=== PATIENT | male | born 1960 | race Caucasian/White ===

== ENCOUNTER 2017-10-13 18:05 | Emergency (ER) | payer MEDICARE, SELFPAY ==
[2017-10-13 18:06] VITALS: BP 136/83; PULSE 104; RESP 16; TEMP 36.6; O2SAT 99; BMI 23.6
--- NOTE | 2017-10-13 18:37 | ED.VISSUMM ---
- ER Visit Summary Date of Service: 10/13/17 Chief Complaint: Back pain History of Present Illness: The patient is a 57 M with a history of chronic back pain. Patient states that he had nerve blocks in the past. He states for the past 3 days he had increasing back pain that he attributes to increased activity. 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 Patient states he has been doing his stretches without improvement. He is requesting a shot of steroid, muscle relaxer, and pain medicine. He has not been taking anything at home for pain. Physical Examination: Vital signs are grossly unremarkable. Heart rate is slightly elevated at 104. Patient is talking on his cell phone. He is in no acute distress. Head and neck examination unremarkable. Heart is regular rate and rhythm. Lung sounds are clear. Abdomen is soft nontender. No masses appreciated. Back examination was no midline tenderness. He does have reproducible tenderness in the left lumbar paraspinal muscles. Neuro exam reveals normal strength and sensation in the lower extremities. He has 1+ bilateral patellar reflexes. He has strong distal pulses. Test Results: [] Emergency Department Course and Treatment: Oars report was performed. He has had 2 prescriptions in the past year with the most recent being from March 2017. On review of hospital records I do not see that he has been seen here for back pain the last 5 years. Patient is given a shot of Kenalog, Norflex, and Toradol. He will be given prescriptions for Flexeril and Naprosyn. He is to follow-up with his primary care physician for further treatment. Treatment Plan: [] Disposition: Discharge Impression: Low back strain with spasm This note was generated with [employer] dictation software. It may contain incorrect words, spelling, and punctuation that were not noted in review of the chart prior to signing ED Disposition - Plan for ED Patient: Chief Complaint: Back Referrals: Chavez Manning MD [Primary Care Provider] -
--- NOTE | 2017-10-13 18:40 | ED.DEP ---
ED Disposition - Plan for ED Patient: Disposition: Home or Assisted Living Chief Complaint: Back Instructions: ED Sprain Strain Lumbar Prescriptions: Naproxen [Naprosyn] 500 mg PO BID PRN #20 tablet Cyclobenzaprine [Flexeril] 10 mg PO TID PRN #20 tablet PRN Reason: Muscle Spasm Referrals: Chavez Manning MD [Primary Care Provider] - 1 Week
[2017-10-13] MEDS: Ketorolac 60 MG/2 ML Vial IM (18:59)
[2017-10-13] MEDS: Triamcinolone Acetonide 40 MG/ML Vial IM (18:59)
[2017-10-13] MEDS: Orphenadrine 60 MG/2 ML Ampul IM (18:59)
== END 2017-10-13 19:41 | disposition home or self-care (01) ==
LOC: ED 18:55
PROVIDERS: Emergency Provider Emergency Medicine; Family Provider Internal Medicine; PCP Internal Medicine
DX: S39.012A Strain of muscle, fascia and tendon of lower back, initial encounter (principal); X50.3XXA Overexertion from repetitive movements, initial encounter; Y93.H9 Activity, other involving exterior property and land maintenance, building and construction; Y92.9 Unspecified place or not applicable; Y99.9 Unspecified external cause status; R25.2 Cramp and spasm; Z72.0 Tobacco use
CPT/HCPCS: 99282

== ENCOUNTER 2018-04-08 15:27 | Emergency (ER) | payer MEDICARE, SELFPAY ==
[2018-04-08 15:29] VITALS: BP 147/80; PULSE 111; RESP 17; TEMP 36.9; O2SAT 99; BMI 22.8
--- NOTE | 2018-04-08 15:43 | ED.VISSUMM ---
- ER Visit Summary Date of Service: 04/08/18 Chief Complaint: Back pain History of Present Illness: The patient is a 58 M with no primary care physician. He reports that he has left lower back pain began 3 days ago. He denies any trauma. No fall, MVA, or change in activity. Describes as aching constant pain that is 7 out of 10 in severity. He has sharp episodes that are 10 out of 10 severity. Is worsened by bending or walking. Is relieved by remaining still. He is not taking anything for pain. States that it radiates around to the lateral left leg. He denies any numbness or weakness in his legs. No problems with his bowels or bladder. No groin numbness. Patient reports that he has had similar episodes multiple times in the past and that is relieved by a shot in the emergency department. States the pain does not return for 6 months. Physical Examination: Vitals: Stable. Afebrile. General: A&O x 3. NAD. Cardiovascular exam: Regular rate and rhythm, no murmur, rub or gallop. Respiratory exam: Clear to auscultation bilaterally. No wheezes or stridor. Abdominal exam: Soft, nontender, nondistended, normal bowel sounds. No peritoneal signs. Back: Moderate tenderness to palpation over the paraspinous musculature in the lumbar region on the left. No vertebral tenderness. No point tenderness. Negative straight leg bilaterally. 5/5 DF, PF, EHL bilaterally. Normal sensation to light touch throughout. Extremity: No clubbing, cyanosis, or edema. Emergency Department Course and Treatment: Patient reports that he has received relief in the past from Toradol, Norflex, and Kenalog. He is given a shot of each of these. Treatment Plan: Patient states that he does not need any further medications at home. He will be discharged instructions to follow-up with Dr. Medina, who is next illness for no doc, 3-5 days if not improving. Return to the emergency department for any worsening symptoms. Disposition: To home in improved and stable condition. Impression: 1. Low back pain. This note was generated with [employer] dictation software. It may contain incorrect words, spelling, and punctuation that were not noted in review of the chart prior to signing ED Disposition - Plan for ED Patient: Chief Complaint: Back Instructions: ED Sprain Strain Lumbar Referrals: Angie Medina DO [STAFF PHYSICIAN] - 3-5 Days if not improving
--- NOTE | 2018-04-08 15:46 | ED.DCSUM_ITS ---
- ER Visit Summary Date of Service: 04/08/18 Chief Complaint: Back pain History of Present Illness: The patient is a 58 M with no primary care physician. He reports that he has left lower back pain began 3 days ago. He denies any trauma. No fall, MVA, or change in activity. Describes as aching constant pain that is 7 out of 10 in severity. He has sharp episodes that are 10 out of 10 severity. Is worsened by bending or walking. Is relieved by remaining still. He is not taking anything for pain. States that it radiates around to the lateral left leg. He denies any numbness or weakness in his legs. No problems with his bowels or bladder. No groin numbness. Patient reports that he has had similar episodes multiple times in the past and that is relieved by a shot in the emergency department. States the pain does not return for 6 months. Physical Examination: Vitals: Stable. Afebrile. General: A&O x 3. NAD. Cardiovascular exam: Regular rate and rhythm, no murmur, rub or gallop. Respiratory exam: Clear to auscultation bilaterally. No wheezes or stridor. Abdominal exam: Soft, nontender, nondistended, normal bowel sounds. No peritoneal signs. Back: Moderate tenderness to palpation over the paraspinous musculature in the lumbar region on the left. No vertebral tenderness. No point tenderness. Negative straight leg bilaterally. 5/5 DF, PF, EHL bilaterally. Normal sensation to light touch throughout. Extremity: No clubbing, cyanosis, or edema. Emergency Department Course and Treatment: Patient reports that he has received relief in the past from Toradol, Norflex, and Kenalog. He is given a shot of each of these. Treatment Plan: Patient states that he does not need any further medications at home. He will be discharged instructions to follow-up with Dr. Medina, who is next illness for no doc, 3-5 days if not improving. Return to the emergency department for any worsening symptoms. Disposition: To home in improved and stable condition. Impression: 1. Low back pain. This note was generated with [employer] dictation software. It may contain incorrect words, spelling, and punctuation that were not noted in review of the chart prio r to signing ED Disposition - Plan for ED Patient: Chief Complaint: Back Instructions: ED Sprain Strain Lumbar Referrals: Angie Medina DO [STAFF PHYSICIAN] - 3-5 Days if not improving
[2018-04-08] MEDS: Orphenadrine 60 MG/2 ML Ampul IM (15:54)
[2018-04-08] MEDS: Triamcinolone Acetonide 40 MG/ML Vial 80 MG IM (15:54)
[2018-04-08] MEDS: Ketorolac 60 MG/2 ML Vial IM (15:54)
[2018-04-08 16:14] VITALS: RESP 18
== END 2018-04-08 16:14 | disposition home or self-care (01) ==
LOC: ED 15:58
PROVIDERS: Emergency Provider Emergency Medicine
DX: M54.5 Low back pain (principal); F17.200 Nicotine dependence, unspecified, uncomplicated
CPT/HCPCS: 96372; 99282

== ENCOUNTER 2018-06-07 08:59 | Emergency (ER) | payer MEDICARE, SELFPAY ==
[2018-06-07 09:00] VITALS: BP 151/82; PULSE 95; RESP 18; TEMP 36.9; O2SAT 98; BMI 23.6
--- NOTE | 2018-06-07 09:37 | ED.DCSUM_ITS ---
- ER Visit Summary Date of Service: 06/07/18 Chief Complaint: Left index finger is swollen and painful. History of Present Illness: The patient is a 58 M right-hand dominant. Patient works in construction. Other than chronic back pain denies any other medical problems. States he had a small laceration to his left index finger on the dorsum aspect about 3 weeks ago has become infected and he has not been evaluated for this by anybody as of yet. States the swelling is better and worse at times. There is some pus like discharge. He denies any fever. He denies any forearm or upper arm pain. No prior history. Physical Examination: Well-appearing middle-age male. Vital signs are stable afebrile. HEENT exam unremarkable. Neck nontender. Lungs clear to auscultation bilaterally. Heart regular rhythm no murmur. Abdomen soft nontender. Extremities moving all 4. Specifically the left index finger is swollen tender and red over the proximal interphalangeal joint. There is a small wound with very small amount of puslike material draining. There is no lymphangitic streaking. There is epitrochlear and axillary lymph nodes are not swollen or tender. He is able to flex and extend at the left index finger but is limited flexion due to discomfort. There are no signs currently of flexor or extensor tenosynovitis. There is obviously soft tissue infection. Distal tip of the finger on left hand is neurovascularly intact. Test Results: None Emergency Department Course and Treatment: Digital digital block left index finger. I made a 1 cm incision over his PIP. There is a small amount of blood but no significant pus. Patient tolerated well. Treatment Plan: Keflex 500 4 times daily for 10 days. Follow-up with either Dr Da Silva plastic surgery or Dr. Rothman of orthopedics. He knows to return if this goes up into his hand or his forearm. Isidro for pain. Disposition: Discharge Impression: Left index finger soft tissue infection (cellulitis) Incision and drainage by ER This note was generated with [employer] software. It may contain incorrect words, spelling, and punctuation that were not noted in review of the chart prior to signing ED Disposition - Plan for ED Patient: Chief Complaint: Wound Check Referrals: Care Physician,No Primary [Primary Care Provider] -
[2018-06-07 09:50] VITALS: TEMP 36.9
[2018-06-07] MEDS: Cephalexin 250 MG Capsule 500 MG PO (09:52)
--- NOTE | 2018-06-07 11:10 | ED.DEP ---
ED Disposition - Plan for ED Patient: Disposition: Home or Assisted Living Chief Complaint: Wound Check Instructions: ED Infec Skin Cellulitis Prescriptions: Hydrocodone Bitart/Apap 5-325 [[place] 5MG-325MG] 1 tab PO Q4H PRN PRN 3 Days #14 tab PRN Reason: Pain Cephalexin [Keflex] 500 mg PO Q6 10 Days #40 cap Referrals: Care Physician,No Primary [Primary Care Provider] -
--- NOTE | 2018-06-07 11:13 | DCINST.ED_ITS ---
ED Disposition - Plan for ED Patient: Disposition: Home or Assisted Living Chief Complaint: Wound Check Instructions: ED Infec Skin Cellulitis Prescriptions: Hydrocodone Bitart/Apap 5-325 [[place] 5MG-325MG] 1 tab PO Q4H PRN PRN 3 Days #14 tab PRN Reason: Pain Cephalexin [Keflex] 500 mg PO Q6 10 Days #40 cap Referrals: Care Physician,No Primary [Primary Care Provider] -
[2018-06-07 11:28] VITALS: PULSE 89; RESP 14; RESP 17; TEMP 36.9; O2SAT 98
--- OUTSIDE RECORDS SUMMARY | 2018-09-09 13:03 | XMS RPT_ITS | Continuity of Care Document ---
:1960 Author Organization [facility] Address [address] [place] [address] Phone Care Team Providers Name Role Phone Adam TanishaAngie Unavailable [facility], [facility] Unavailable Dr. Roel Huertas Unavailable HEATH Evans Unavailable Unavailable Unavailable Unavailable Problems Name Dates Details Alcohol abuse (F10.10, 305.00) Status: Active BMI 21.0-21.9, adult (Z68.21, V85.1) Status: Active Elevated blood pressure reading (R03.0, 796.2) Status: Active Low back pain potentially associated with radiculopathy (M54.5, 724.2) Status: Active Smoker (F17.200, 305.1) Status: Active Medications Name Dates Details Cyclobenzaprine HCl 5 MG Oral Tablet 1-2 Tablet bid prn muscle spasm in low back for 0 days Quantity: 30 {Tablet} Refills: 0 Ordered:09-Jun-2018 Felice Medina DO, DO, Kathleen Start : 09-Jun-2018 Active Comments:thirty Meloxicam 15 MG Oral Tablet 1 (one) Tablet qd with food - for 0 days Quantity: 30 {Tablet} Refills: 0 Ordered:09-Jun-2018 Felice Medina DO, DO, Kathleen Start : 09-Jun-2018 Active Comments:no etoh with it and start it after prednisone tabs are done PredniSONE 20 MG Oral Tablet 1 (one) Tablet bid for 3days then qd for 3days for 0 days Quantity: 9 {Tablet} Refills: 0 Ordered:09-Jun-2018 Felice Medina DO, DO, Kathleen Start : 09-Jun-2018 Active Allergies and Adverse Reactions Name Dates Details No Known Allergies (Allergy) Onset: 09-Jun-2018 Status: Active Immunization Name Dates Details Tetanus on: 2016 Social History Name Dates Details Caffeine Use Comments: qd Status: Active Drug Use: Uses marijuana. Comments: qod Status: Active Exercise History: Does not exercise. Status: Active Living Situation: Lives with spouse. Lives with relatives. Status: Active Pets/Animals: Dog. Status: Active Tobacco Use Comments: 06/24 ppd Status: Active Vital Signs Date Test Result Details [id number] Temperature 97 f Comments: Method: Temporal Pulse 80 /min Comments: Pattern: Regular Respiration Rate 18 /min Comments: Pattern: Unlabored O2 SAT 97 % Comments: Room air BP Systolic 143 mm[Hg] Comments: Patient Position: Sitting; Cuff Location: Left Arm; Cuff Size: Large BP Diastolic 80 mm[Hg] Comments: Patient Position: Sitting; Cuff Location: Left Arm; Cuff Size: Large Weight 148.5 lb Height 69 in Body Mass Index Calculated 21.93 kg/m2 Body Surface Area Calculated 1.82 m2 Results Date Description Value Details No Result Information Available Plan of Care Name Dates Details Instructions Elevated blood pressure reading : BP MONITORING - SELF Indication: Elevated blood pressure reading Planned Procedures Radiology - Lumbar SpineBy: Angie Medina DO, DO, On: 09-Jun-2018 Intent Angie Instructions Name Dates Details Smoker : How to access health information online Indication: Smoker Smoker : How to access health information online - Detail Indication: Smoker Advance Directives Name Dates Details Immunization Registry [place] - Effective on Effective: 09-Jun-201806/09/2018. Expiration date unspecified Encounters Office Visit On: 09-Jun-2018 10:24 Encounter Reason: Back Pain - The injury involved the lower back. The patient describes the pain as aching. Onset was sudden. The symptoms occur intermittently. Note for Back pain: he goes to ER and they will give him End: 09-Jun-2018 11:48 a steriod shot asnd muscle releaxer and then he takes it and he will be ok for a little while-- h/o of nerve block in lumbar back in 's- early s.- never saw pain here or [place] busy busy busy-- he travelled to work disaster emergencies-- He andrez windows vinyl etcEncounter Diagnosis: BMI 21.0-21.9, adult, Smoker, Low back pain potentially associated with radiculopathy, Alcohol abuse, Elevated blood pressure reading [facility] Payers MedicareMichael Bunting; kit guarantor
--- OUTSIDE RECORDS SUMMARY | 2018-09-09 13:03 | XMS RPT_ITS ---
:1960 Author Organization [facility] Care Team Providers Name Role Phone CHAVEZ SAMUEL Attending Unavailable CHAVEZ SAMUEL Referring Unavailable CHAVEZ SAMUEL Referring Unavailable CHAVEZ SAMUEL Referring Unavailable Angie Medina DO Attending Unavailable Angie Medina DO Consulting Unavailable Primay Care Physicia, No Primary Care Unavailable Mino Ramos Attending Unavailable Primay Care Physicia, No Primary Care Unavailable Erik Tate Attending Unavailable Heather Garcia Attending Unavailable Chavez Samuel Primary Care Unavailable Enrique Wright Attending Unavailable Primay Care Physicia, No Primary Care Unavailable Angie Medina Attending Unavailable Adam Angie Primary Care Unavailable AdamAngie Attending Unavailable AdamAngie phillips Referring Unavailable Adam Angie Primary Care Unavailable PROBLEMS PROBLEMS DATE TYPE CONDITION / CODE ATTENDING STATUS SOURCE 06/07/2018 Unknown L08.9 - Local Mino Ramos Active [facility] subcutaneous Repository tissue, unspecified / L08.9(ICD-10) 07/30/2017 Active Major depressive NA Active [facility] disorder, single [place] episode, Repository unspecified / F32.9(ICD-10) 07/30/2017 Active Alcohol dependence, NA Active [facility] uncomplicated / [place] F10.20(ICD-10) Repository 07/30/2017 Active Chest pain, NA Active [facility] unspecified / [place] R07.9(ICD-10) Repository 07/30/2017 Active Palpitations / NA Active [facility] R00.2(ICD-10) [place] Repository 07/30/2017 Active Chronic obstructive NA Active [facility] pulmonary disease, [place] unspecified / Repository J44.9(ICD-10) PROCEDURES PROCEDURES No Procedure Records FoundRESULTS RESULTS EMERGENCY DEPARTMENT Observed: 06/15/2018 Status: F Source: WOD[place] SUMMARY 7:03 AM [facility] REPOSITORY [facility] Medical Records Department [address] [place] [address] Emergency Department Summary 06/08/18 2320 MR#: [id number] Acct: [id number] Name: LANA SMYTH Rep #: [id number] : 1960 58 From: Erik Tate DO PCP: Care Physician, No Primary Status: DEP ER - ER Visit Summary Date of Service: 06/08/18 Chief Complaint: Left index finger infection History of Present Illness: The patient is a 58 M who states that 3 weeks ago he cut the dorsum of his left index finger at the PIP joint 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 He states he was doing local wound care and then 3 days ago it began to swell and turn red. He was seen in the emergency department yesterday had a I AND D that did not express significant pus. He was placed on Keflex. He states that the swelling and the redness is worse. He states the pain is not controlled. He denies any fevers. Denies any rash of the arms. He notes his tetanus is up-to-date. He is right-handed. Physical Examination: Vital signs are stable Gen: Well-nourished well-developed Head: Normocephalic atraumatic Eyes: Perrl EOMI ENT: TMs clear no rhinorrhea moist mucous membranes Neck: Supple no lymphadenopathy no JVD nontender CVS: Regular rate rhythm no murmurs normal S1-S2 Respiratory: No distress clear to auscultation bilaterally chest nontender Abdomen: Soft nontender nondistended normal bowel sounds no masses Back: Nontender Extremity: The left index finger is swollen. There is erythema from the DIP joint extending proximally onto the dorsum of the hand across to the fourth MCP joint. There is no lymphangitic streaking. The erythema on the finger is not circumferential. He is neurovascular intact distally. This does not appear to be a extensor tenosynovitis. Patient is able to flex and extend. Skin: Normal color no rash Neuro: alert orientated 3 CN II-XII intact normal strength sensation reflexes gait cerebellar Psych: Normal affect normal mood Test Results: CBC BMP and hand x-ray was obtained. Culture was also obtained from the wound. Emergency Department Course and Treatment: Patient received IV clindamycin. We are going to broaden coverage with some Bactrim. Will await culture and sensitivities. Patient has not scheduled a follow-up appointment. He does not know why he has not done so. I advised him that he should call the office to arrange early follow-up and if he cannot be seen within 24-48 hrs. he should return to the emergency department for repeat examination. He should return earlier if he feels it is worsening or if he is having fever. He was advised that this can turn into a very serious infection that would require hospitalization and possibly surgery. Impression: 1. Left index finger cellulitis 2. Left hand cellulitis This note was generated with Beta Dash dictation software. It may contain incorrect words, spelling, and punctuation that were not noted in review of the chart prior to signing ED Disposition - Plan for ED Patient: Disposition: Home or Assisted Living Chief Complaint: Cellulitis Instructions: Discharge Instructions for Cellulitis Prescriptions: Smz/Tmp Ds [Bactrim Ds] 1 tab PO BID #20 tab Referrals: Jeremiah Da Silva MD [STAFF PHYSICIAN] - As soon as possible Additional Instructions: If you cannot arrange follow-up in the next 24-48 hours please return to the emergency room for repeat evaluation If you feel that the infection continues to worsen please return for repeat examination What to do if you have Problems For any increased pain, shortness of breath, bleeding, nausea or vomiting, chest pain, or any unexpected problems, contact your Primary Care Provider. Call [facility] ([phone]) or report to the closest Emergency Room. Call 911 if necessary. 06/15/18 0703 <Electronically signed by Erik Tate DO> Date Erik Tate DO Cosigner Signature (If Indicated): Date CC: No Primary Care Physician L/S SPINE MIN 4 Observed: 06/09/2018 Status: F Source: [place] VIEWS 12:09 PM [facility] REPOSITORY [facility] Imaging Services [address] [place] [address] L/S Spine Min 4 Views MR#: [id number] Acct: [id number] Name: LANA SMYTH Rep #: [id number] : 1960 58 From: Cam Tucker DO PCP: Angie Medina DO Status: REG CLI Study: L/S Spine Min 4 Views Date of Exam: 06/09/18 Exam# [id number] Ordering Dr: Angie Medina DO STUDY: X-RAY - LUMBAR SPINE REASON FOR EXAM: Male, 58 years old. Low back pain TECHNIQUE: 5 view(s) of the lumbar spine were obtained. COMPARISON: None FINDINGS: Normal lumbar lordosis. There is no substantial scoliosis. There is a normal alignment of the vertebrae. There is multilevel endplate spondylosis of the lumbar vertebrae. There is multi-level degenerative disc disease with multi-level disc space narrowing. There is no demonstrated fracture. The soft tissue structures are unremarkable. RAD/L/S Spine Min 4 Views IMPRESSION: Degenerative changes of the spine, as detailed above. Electronically Signed: Cam Tucker at 12:59 EST Tel , Service support , CC: Angie Medina Entry Level Staff Accountant: Signed Observed: 06/09/2018 Status: F Source: [place] CULTURE, WOUND 1:12 AM [facility] REPOS[facility] Order Date: 06/09/18 Has pt arrived? Y Gram Stain Gram Stain 4+ White Blood Cells No organisms seen Wound Culture Possible skin contamination, further Identification and sensitivity will be performed only by physician's request. ORGANISM 1: Coag Negative Staph Amount Growth Very Rare Performed By: #### M100.1400 #### [facility] [address] [facility] [place], [address] Observed: 06/08/2018 Status: F Source: [place] CULTURE, BLOOD (WB) 11:45 PM [facility] REPOSITORY BC No growth in 5 days. Performed By: #### M200.1000 #### [facility] [address] [facility] [place], [address] BASIC METABOLIC Collected: 06/08/2018 Status: F Source: [place] PROFILE (BMP) 11:40 PM [facility] REPOSITORY TYPE CODE TESTS RESULT OUT OF RANGE REFERENCE UNITS LAB L501.0100 74-106 mg/dL High GLU 108 Result Comment: Fasting Glucose result from 100 to 125 mg/dL suggests IMPAIRED HOMEOSTASIS per A.D.A. criteria. Please note revised GLUCOSE reference range effective 2017. LAB L501.1000 7-18 mg/dL Normal BUN 7 LAB L501.1100 0.70-1.30 mg/dL Normal CREAT,SERUM 0.76 Result Comment: The validity of the calculated GFR AND GFRAA in patients over 70 years has not been determined. Clinical correlation is essential. LAB L501.1110 >60 mL/min Normal EST GFR 111 Result Comment: Non- GFR Calc LAB L501.1115 >60 mL/min Normal EST GFR - AA 134 Result Comment: GFR Calc LAB L501.1255 ml/min Normal Estimated CRCL 100.00 LAB L501.1300 10-20 RATIO Low BUN/CRE 9.2 LAB L501.2200 8.5-10 mg/dL Low .1 CA 8.2 LAB L501.5300 136-14 mmol/L Low 5 NA 135 LAB L501.5600 3.5-5. mmol/L Low 1 K 3.3 LAB L501.5900 98-107 mmol/L CL Normal 99 LAB L501.6100 21.0-3 mmol/L 2.0 CO2 Normal 25.0 LAB L501.6200 5-15 GAP Normal 11 Performed By: #### L500.2500 #### [facility] [address] [place], [address] CBC W/DIFF, AUTOMATED Collected: 06/08/2018 Status: F Source: WODEN 11:40 PM [facility] REPOSITORY TYPE CODE TESTS RESULT OUT OF RANGE REFERENCE UNITS LAB L100.1000 4.4-11.0 K/mm3 Normal WBC 7.8 LAB L100.1200 4.6-6.2 M/mm3 Normal RBC 4.65 LAB L100.1300 13.0-16.5 g/dl Normal HGB 15.0 LAB L100.1400 40-54 % Normal HCT 44.0 LAB L100.1500 80-94 fL High MCV 94.6 LAB L100.1600 27.0-32.0 pg High MCH 32.3 LAB L100.1700 32-36 g/gl Normal MCHC 34.1 LAB L100.1810 11.6-14.6 % Normal RDW CV 12.3 LAB L100.1820 35.1-43.9 fl Normal RDW SD 41.9 LAB L100.1900 150-450 K/mm3 Normal PLT 271 LAB L100.2000 6.2-12.0 fl Normal MPV 9.7 LAB L100.2100 47-70 % Normal NEUT% 55.8 LAB L100.2200 19-41 % Normal LY% 31.3 LAB L100.2300 0-10 % Normal MONO% 8.0 LAB L100.2400 0-5 % Normal EO% 4.2 LAB L100.2500 0-1 % Normal BASO% 0.6 LAB L100.2550 0.0-0.9 % Normal IM GRAN % 0.100 Result Comment: IG% - Immature Granulocytes (promyelocytes, myelocytes and metamyelocytes) > 1% indicates that a LEFT SHIFT is Present. LAB L100.2620 2.0-7.7 X10 3/uL Normal Absolute Neut 4.3 LAB L100.2720 0.83-4.51 X10 3/ul Normal Absolute Lymph 2.43 Performed By: #### L100.0100 #### [facility] [address] [facility] [place], [address] LACTIC ACID Collected: 06/08/2018 Status: F Source: [place] 11:40 PM [facility] REPOSITORY Order Comment: Yes/No query for Sepsis Lactate Rule Y TYPE CODE TESTS RESULT OUT OF RANGE REFERENCE UNITS LAB L503.6005 0.4-2.0 mmol/L Normal LACTIC ACID 1.9 Performed By: #### L503.6005 #### [facility] [address] [facility] [place], [address] Observed: 06/08/2018 Status: F Source: [place] CULTURE, BLOOD (WB) 11:40 PM [facility] REPOSITORY BC No growth in 5 days. Performed By: #### M200.1000 #### [facility] [address] [place], [address] HAND MIN 3 VIEWS Observed: 06/08/2018 Status: F Source: [place] 11:19 PM [facility] RE[facility]ITORY [facility] Imaging Services [address] [place] [address] Hand Min 3 Views MR#: [id number] Acct: [id number] Name: LANA SMYTH Rep #: [id number] : 1960 M 58 From: Donna Stern MD PCP: Care Physician, No Primary Status: REG ER Study: Hand Min 3 Views Date of Exam: 06/08/18 Exam# [id number] Ordering Dr: Erik aTte DO STUDY: X-RAY - LEFT HAND REASON FOR EXAM: Male, 58 years old. Left index finger infection. TECHNIQUE: 3 view(s) of the hand. COMPARISON: None. FINDINGS: There is joint space narrowing of the radiocarpal articulation consistent with degenerative arthrosis. Normal distal radioulnar joint. Normal visualized carpal bones. There is widening of the scapholunate distance. There is degenerative arthrosis of the carpometacarpal (CMC) articulation of the thumb. Normal second through fifth carpometacarpal joints. Normal metacarpi. Normal metacarpophalangeal joint of the thumb. Normal interphalangeal joint of the thumb. Normal proximal and distal phalanges of the thumb. Normal metacarpophalangeal joints of the second through fifth fingers. Normal proximal and distal interphalangeal joints of the second through fifth fingers. Normal phalanges of the second through fifth fingers. There is soft tissue swelling of the index finger. There is also some soft tissue swelling of the thumb. RAD/Hand Min 3 Views IMPRESSION: 1. Diffuse soft tissue swelling of the index finger consistent with clinical exam. There is no other evidence to suggest osteomyelitis. 2. 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 Electronically Signed: Donna Stern MD at 0:19 EST , Service support , CC: No Primary Care Physician; Erik Tate DO Entry Level Staff Accountant: Signed DISCHARGE INSTRUCTION Observed: 06/07/2018 Status: F Source: WODEN 11:33 AM [facility] Medical Records Department [address] [place] [address] Discharge Instruction 06/07/18 1110 MR#: [id number] Acct: [id number] Name: LANA SMYTH Rep #: [id number] : 1960 58 From: Mino Ramos MD PCP: Care Physician, No Primary Status: DEP ER ED Disposition - Plan for ED Patient: Disposition: Home or Assisted Living Chief Complaint: Wound Check Instructions: ED Infec Skin Cellulitis Prescriptions: Hydrocodone Bitart/Apap 5-325 [Windom 5MG-325MG] 1 tab PO Q4H PRN PRN 3 Days #14 tab PRN Reason: Pain Cephalexin [Keflex] 500 mg PO Q6 10 Days #40 cap Referrals: Care Physician,No Primary [Primary Care Provider] - What to do if you have Problems For any increased pain, shortness of breath, bleeding, nausea or vomiting, chest pain, or any unexpected problems, contact your Primary Care Provider. Call [facility] ([phone]) or report to the closest Emergency Room. Call 911 if necessary. 06/07/18 1133 <Electronically signed by Mino Ramos MD> Date Mino Ramos MD Cosigner Signature (If Indicated): Date CC: No Primary Care Physician EMERGENCY DEPARTMENT Observed: 06/07/2018 Status: F Source: WODEN SUMMARY 11:33 AM [facility] RE[facility]ORY [facility] Medical Records Department [address] [place] [address] Emergency Department Summary 06/07/18 0934 MR#: [id number] Acct: [id number] Name: LANA SMYTH Rep #: [id number] : 1960 58 From: Mino Ramos MD PCP: Care Physician, No Primary Status: DEP ER - ER Visit Summary Date of Service: 06/07/18 Chief Complaint: Left index finger is swollen and painful. History of Present Illness: The patient is a 58 M right-hand dominant. Patient works in construction. Other than chronic back pain denies any other medical problems. States he had a small laceration to his left index finger on the dorsum aspect about 3 weeks ago has become infected and he has not been evaluated for this by anybody as of yet. States the swelling is better and worse at times. There is some pus like discharge. He denies any fever. He denies any forearm or upper arm pain. No prior history. Physical Examination: Well-appearing middle-age male. Vital signs are stable afebrile. HEENT exam unremarkable. Neck nontender. Lungs clear to auscultation bilaterally. Heart regular rhythm no murmur. Abdomen soft nontender. Extremities moving all 4. Specifically the left index finger is swollen tender and red over the proximal interphalangeal joint. There is a small wound with very small amount of puslike material draining. There is no lymphangitic streaking. There is epitrochlear and axillary lymph nodes are not swollen or tender. He is able to flex and extend at the left index finger but is limited flexion due to discomfort. There are no signs currently of flexor or extensor tenosynovitis. There is obviously soft tissue infection. Distal tip of the finger on left hand is neurovascularly intact. Test Results: None Emergency Department Course and Treatment: Digital digital block left index finger. I made a 1 cm incision over his PIP. There is a small amount of blood but no significant pus. Patient tolerated well. Treatment Plan: Keflex 500 4 times daily for 10 days. Follow- up with either Dr Da Silva plastic surgery or Dr. Rothman of orthopedics. He knows to return if this goes up into his hand or his forearm. Isidro for pain. Disposition: Discharge Impression: Left index finger soft tissue infection (cellulitis) Incision and drainage by ER This note was generated with Beta Dash dictation software. It may contain incorrect words, spelling, and punctuation that were not noted in review of the chart prior to signing ED Disposition - Plan for ED Patient: Chief Complaint: Wound Check Referrals: Care Physician,No Primary [Primary Care Provider] - What to do if you have Problems For any increased pain, shortness of breath, bleeding, nausea or vomiting, chest pain, or any unexpected problems, contact your Primary Care Provider. Call [facility] ([phone]) or report to the closest Emergency Room. Call 911 if necessary. 06/07/18 1133 <Electronically signed by Mino Ramos MD> Date Mino Ramos MD Cosigner Signature (If Indicated): Date CC: No Primary Care Physician EMERGENCY DEPARTMENT Observed: 04/08/2018 Status: F Source: WODEN SUMMARY 11:19 PM [facility] RE[facility]ITORY [facility] Medical Records Department [address] [place] [address] Emergency Department Summary 04/08/18 1543 MR#: [id number] Acct: [id number] Name: LANA SMYTH Rep #: [id number] : 1960 58 From: Enrique Wright MD PCP: Care Physician, No Primary Status: DEP ER - ER Visit Summary Date of Service: 04/08/18 Chief Complaint: Back pain History of Present Illness: The patient is a 58 M with no primary care physician. He reports that he has left lower back pain began 3 days ago. He denies any trauma. No fall, MVA, or change in activity. Describes as aching constant pain that is 7 out of 10 in severity. He has sharp episodes that are 10 out of 10 severity. Is worsened by bending or walking. Is relieved by remaining still. He is not taking anything for pain. States that it radiates around to the lateral left leg. He denies any numbness or weakness in his legs. No problems with his bowels or bladder. No groin numbness. Patient reports that he has had similar episodes multiple times in the past and that is relieved by a shot in the emergency department. States the pain does not return for 6 months. Physical Examination: Vitals: Stable. Afebrile. General: A AND O x 3. NAD. Cardiovascular exam: Regular rate and rhythm, no murmur, rub or gallop. Respiratory exam: Clear to auscultation bilaterally. No wheezes or stridor. Abdominal exam: Soft, nontender, nondistended, normal bowel sounds. No peritoneal signs. Back: Moderate tenderness to palpation over the paraspinous musculature in the lumbar region on the left. No vertebral tenderness. No point tenderness. Negative straight leg bilaterally. 5/5 DF, PF, EHL bilaterally. Normal sensation to light touch throughout. Extremity: No clubbing, cyanosis, or edema. Emergency Department Course and Treatment: Patient reports that he has received relief in the past from Toradol, Norflex, and Kenalog. He is given a shot of each of these. Treatment Plan: Patient states that he does not need any further medications at home. He will be discharged instructions to follow-up with Dr. Medina, who is next illness for no doc, 3-5 days if not improving. Return to the emergency department for any worsening symptoms. Disposition: To home in improved and stable condition. Impression: 1. Low back pain. This note was generated with Beta Dash dictation software. It may contain incorrect words, spelling, and punctuation that were not noted in review of the chart prior to signing ED Disposition - Plan for ED Patient: Chief Complaint: Back Instructions: ED Sprain Strain Lumbar Referrals: Angie Medina DO [STAFF PHYSICIAN] - 3-5 Days if not improving What to do if you have Problems For any increased pain, shortness of breath, bleeding, nausea or vomiting, chest pain, or any unexpected problems, contact your Primary Care Provider. Call [facility] ([phone]) or report to the closest Emergency Room. Call 911 if necessary. 04/08/18 2319 <Electronically signed by Enrique Wright MD> Date Enrique Wright MD Cosigner Signature (If Indicated): Date CC: No Primary Care Physician EMERGENCY DEPARTMENT Observed: 10/14/2017 Status: F Source: WODEN SUMMARY 12:34 AM [facility] REPOSITORY [facility] Medical Records Department [address] [place] [address] Emergency Department Summary 10/13/17 1837 MR#: [id number] Acct: [id number] Name: LANA SMYTH Rep #: [id number] : 1960 57 From: Heather Garcia MD PCP: Chavez Samuel MD Status: DEP ER - ER Visit Summary Date of Service: 10/13/17 Chief Complaint: Back pain History of Present Illness: The patient is a 57 M with a history of chronic back pain. Patient states that he had nerve blocks in the past. He states for the past 3 days he had increasing back pain that he attributes to increased activity. 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 Patient states he has been doing his stretches without improvement. He is requesting a shot of steroid, muscle relaxer, and pain medicine. He has not been taking anything at home for pain. Physical Examination: Vital signs are grossly unremarkable. Heart rate is slightly elevated at 104. Patient is talking on his cell phone. He is in no acute distress. Head and neck examination unremarkable. Heart is regular rate and rhythm. Lung sounds are clear. Abdomen is soft nontender. No masses appreciated. Back examination was no midline tenderness. He does have reproducible tenderness in the left lumbar paraspinal muscles. Neuro exam reveals normal strength and sensation in the lower extremities. He has 1+ bilateral patellar reflexes. He has strong distal pulses. Test Results: [] Emergency Department Course and Treatment: Oars report was performed. He has had 2 prescriptions in the past year with the most recent being from March 2017. On review of hospital records I do not see that he has been seen here for back pain the last 5 years. Patient is given a shot of Kenalog, Norflex, and Toradol. He will be given prescriptions for Flexeril and Naprosyn. He is to follow-up with his primary care physician for further treatment. Treatment Plan: [] Disposition: Discharge Impression: Low back strain with spasm This note was generated with Beta Dash dictation software. It may contain incorrect words, spelling, and punctuation that were not noted in review of the chart prior to signing ED Disposition - Plan for ED Patient: Chief Complaint: Back Referrals: Chavez Samuel MD [Primary Care Provider] - What to do if you have Problems For any increased pain, shortness of breath, bleeding, nausea or vomiting, chest pain, or any unexpected problems, contact your Primary Care Provider. Call [facility] ([phone]) or report to the closest Emergency Room. Call 911 if necessary. 10/14/17 0034 <Electronically signed by Heather Garcia MD> Date Heather Garcia MD Cosigner Signature (If Indicated): Date CC: Chavez Samuel MD DISCHARGE INSTRUCTION Observed: 10/13/2017 Status: F Source: [place]ISE 6:41 PM [facility] RE[facility]ITORY [facility] Medical Records Department [address] [place] [address] Discharge Instruction 10/13/171839 MR#: [id number] Acct: [id number] Name: LANA SMYTH Rep #: [id number] : 1960 57 From: Heather Garcia MD PCP: Chavez Samuel MD Status: PRE ER ED Disposition - Plan for ED Patient: Disposition: Home or Assisted Living Chief Complaint: Back Instructions: ED Sprain Strain Lumbar Prescriptions: Naproxen [Naprosyn] 500 mg PO BID PRN #20 tablet Cyclobenzaprine [Flexeril] 10 mg PO TID PRN #20 tablet PRN Reason: Muscle Spasm Referrals: Chavez Samuel MD [Primary Care Provider] - 1 Week What to do if you have Problems For any increased pain, shortness of breath, bleeding, nausea or vomiting, chest pain, or any unexpected problems, contact your Primary Care Provider. Call [facility] ([phone]) or report to the closest Emergency Room. Call 911 if necessary. 10/13/171840 <Electronically signed by Heather Garcia MD> Date Heather Garcia MD Cosigner Signature (If Indicated): Date CC: No Primary Care Physician; Chavez Samuel MD COMP METABOLIC PANEL Collected: 07/30/2017 Status: F Source: [place] 3:35 PM [facility] REPOSITORY TYPE CODE TESTS RESULT OUT OF REFERENCE UNITS RANGE LAB TP 6.3-8.0 g/dL Protein, Total 7.9 LAB ALB 3.9-4.9 g/dL Albumin 4.3 LAB CA 8.5-10.2 mg/dL Calcium, Total 9.4 LAB TBIL 0.2-1.3 mg/dL Bilirubin, Total 0.4 LAB ALKP 36-108 U/L Alkaline High Phosphatase 117 LAB AST 14-40 U/L AST High 101 LAB GLU 74-99 mg/dL Glucose 93 Result Comment: The [place] Diabetes Association (ADA) provides guidance for cutoff values for fasting glucose and random glucose. The ADA defines fasting as no caloric intake for at least 8 hours. Fas ting plasma glucose results between 100 to 125 mg/dL indicate increased risk for diabetes (prediabetes). Fasting plasma glucose results greater than or equal to 126 mg/dL meet the criteria for diagnosis of diabetes. In the absence of unequivocal hyperglycemia, results should be confirmed by repeat testing. In a patient with classic symptoms of hyperglycemia or hyperglycemic crisis, random plasma glucose results greater than or equal to 200 mg/dL meet the criteria for diagnosis of diabetes. Reference: Standards of Medical Care in Diabetes 2016, [place] [employer] Association. Diabetes Care. 2016.39(Suppl 1). LAB BUN 9-24 mg/dL Low BUN 7 LAB CRET 0.73-1.22 mg/dL Creatinine 0.92 LAB NA 136-144 mmol/L Low Sodium 135 LAB K 3.7-5.1 mmol/L Potassium 4.3 LAB CL 97-105 mmol/L Low Chloride 95 LAB CO2 22-30 mmol/L CO2 27 LAB AGAP 9-18 mmol/L Anion Gap 13 LAB ALT 10-54 U/L ALT High 80 LAB GFRAA eGFR- Amer. >60 LAB GFRNAA . eGFR-All Other Races >60 Result Comment: eGFR (Estimated GFR) Units of measure: mL/min/1.73 meters squared eGFR is derived from the reexpressed MDRD Study equation using the following parameters: serum creatinine, age, gender and race. The creatinine assay has been calibrated to be traceable to IDMS. An eGFR <60 mL/min/1.73m2 for >3 months is consistent with chronic kidney disease. Refer to KDOQI guidelines for clinical interpretation. In patients with unstable renal function, e.g. those with acute kidney injury, the eGFR may not accurately reflect actual GFR. Performed By: #### CMP, LIPB, CBCDIF, B12, SERFOL #### [facility] [address] [place], [place] [address] LIPID PANEL, BASIC Collected: 07/30/2017 Status: F Source: [place] 3:35 PM [facility] REPOSITORY TYPE CODE TESTS RESULT OUT OF REFERENCE UNITS RANGE LAB CHOL <200 mg/dL Cholesterol 189 Result Comment: <200 mg/dL, Desirable 200-239 mg/dL, Borderline high >239 mg/dL, High LAB TRIGLY <150 mg/dL Triglyceride High 248 Result Comment: <150 mg/dL, Normal 150-199 mg/dL, Borderline high 200-499 mg/dL, High >499 mg/dL, Very high LAB HDL >39 mg/dL HDL-Cholesterol 48 Result Comment: 40-59 mg/dL, Acceptable >59 mg/dL, High: Negative risk factor for coronary heart disease <40 mg/dL, Low: Positive risk factor for coronary heart disease LAB LDL <100 mg/dL LDL-Cholesterol 91 Result Comment: <100 mg/dL, Optimal 100-129 mg/dL, Near optimal/above optimal 130-159 mg/dL, Borderline high 160-189 mg/dL, High >189 mg/dL, Very high Secondary prevention optimal LDL Cholesterol levels are recommended to be < 70 mg/dL LAB NONHDL <130 mg/dL Non HDL High Cholesterol 141 Result Comment: <130 mg/dL, Optimal 130-159 mg/dL, Near optimal/above optimal 160-189 mg/dL, Borderline high 190-219 mg/dL, High >219 mg/dL, Very high Secondary prevention optimal non HDL Cholesterol levels are recommended to be < 100 mg/dL LAB FT hrs Fasting Time 3 LAB VLDL <30 mg/dL High VLDL Cholesterol 50 LAB TCHDL <5.10 TC:HDL Ratio 3.94 LAB LDLHDL <2.54 LDL:HDL Ratio 1.90 Result Comment: Reference: 1. National Cholesterol Education Program ATP III Guideline At-A-Glance Quick Desk Reference: National Heart, Lung, and Blood [place]. National Institutes of Health. 2001: NIH Publication No. 01-3305. 2. An International Atherosclerosis Society position paper: global recommendations for the management of dyslipidemia: executive summary, Atherosclerosis. 2014: 232(2):410-413. Performed By: #### CMP, LIPB, CBCDIF, B12, SERFOL #### [facility] [address], [place] [address] CBC AND DIFFERENTIAL Collected: 07/30/2017 Status: F Source: [place] 3:35 PM [facility] REPOSITORY TYPE CODE TESTS RESULT OUT OF REFERENCE UNITS RANGE LAB WBC 3.70-11.00 k/uL WBC 6.70 LAB RBC 4.20-6.00 m/uL RBC 4.56 LAB HGB 13.0-17.0 g/dL Hemoglobin 15.0 LAB HCT 39.0-51.0 % Hematocrit 45.2 LAB MCV 80.0-100.0 fL MCV 99.1 LAB MCH 26.0-34.0 pG MCH 32.9 LAB MCHC 30.5-36.0 g/dL MCHC 33.2 LAB RDWCV 11.5-15.0 % RDW-CV 11.9 LAB PLTCT 150-400 k/uL Platelet Count 221 LAB MPV 9.0-12.7 fL MPV 12.0 LAB ANEUT % Neut% 50.9 LAB AANEUT 1.45-7.50 k/uL Abs Neut 3.39 LAB ALYMP % Lymph% 33.9 LAB AALYMP 1.00-4.00 k/uL Abs Lymph 2.27 LAB AMONO % Mccormick% 9.1 LAB AAMONO <0.87 k/uL Abs Mccormick 0.61 LAB AEOS % Eosin% 5.2 LAB AAEOS <0.46 k/uL Abs Eosin 0.35 LAB ABASO % Baso% 0.9 LAB AABASO <0.11 k/uL Abs Baso 0.06 LAB AUNRBC 0 /100 WBC NRBCs 0.0 LAB ABNRBC <0.01 k/uL Absolute nRBC <0.01 LAB DTYP DTYPE Auto Diff Performed By: #### CMP, LIPB, CBCDIF, B12, SERFOL #### [facility] [address], [place] [address] VITAMIN B12 Collected: 07/30/2017 Status: F Source: [place] 3:35 PM [facility] REPOSITORY TYPE CODE TESTS RESULT OUT OF REFERENCE UNITS RANGE LAB B12 232-1245 pg/mL Vitamin B12 319 Performed By: #### CMP, LIPB, CBCDIF, B12, SERFOL #### [facility] [address] [place], [place] [address] FOLATE, SERUM Collected: 07/30/2017 Status: F Source: [place] 3:35 PM [facility] REPOSITORY TYPE CODE TESTS RESULT OUT OF REFERENCE UNITS RANGE LAB SERFOL >4.7 ng/mL Folate, 13.5 Serum Performed By: #### CMP, LIPB, CBCDIF, B12, SERFOL #### [facility] [address] [place], [place] [address] XR CHEST 2V FRONTAL/LAT Observed: 07/30/2017 Status: F Source: [place] 3:34 PM [facility] REPOSITORY * * *Final Report* * * DATE OF EXAM: Jul 30 2017 3:34PM WOX [id number] - XR CHEST 2V FRONTAL/LAT / PROCEDURE REASON: Chronic obstructive pulmonary disease, unspecified * * * * Physician Interpretation * * * * EXAMINATION: CHEST RADIOGRAPH (2 VIEW FRONTAL and LATERAL) Clinical History: Chronic obstructive pulmonary disease, unspecified M: [id number]_4 Comparison: There are no prior studies available for comparison. RESULT: Lines, tubes, and devices: None. Lungs and pleura: There is calcified residual of old granulomatous infection. Mild diffuse interstitial prominence appears chronic. There is no focal consolidation or acute pleural process. There is no overt pulmonary edema. Cardiomediastinal silhouette: Normal cardiomediastinal silhouette. Other: The visualized bony structures are intact IMPRESSION: No acute cardiopulmonary process. Entry Level Staff Accountant: PSCB Transcribe Date/Time: Jul 30 2017 3:46P Dictated by : KRYSTAL MATOS MD This examination was interpreted and the report reviewed and electronically signed by: KRYSTAL MATOS MD on Jul 30 2017 3:47PM EST [id number] PROGRESS Observed: 07/30/2017 Status: COMPLETED Source: [place] 3:27 PM [facility] REPOSITORY HNO ID: [id number] Author: Yudith Bashir (Rt) Aly Cannon Service: (none) Author Type: Bromination Equipment Operator Type: Progress Notes Filed: 07/30/2017 3:34 PM Note Text: Radiology Service Progress Note PATIENT NAME: Lana Smyth DATE OF SERVICE: July 30, 2017 TIME: 3:27 PM PATIENT IDENTITY VERIFICATION COMPLETED USING TWO (2) METHODS: Patient confirmed name verbally and Date of . PATIENT GENDER DATA: Male PATIENT RELEVANT IMPLANT DATA REVIEWED: Not Applicable RADIOLOGY DEPARTMENT: General X-ray: Exam(s) Completed: Chest X-Ray PERIPHERAL IV DATA: Not applicable SIGNED BY: RT [place] July 30, 2017 3:27 PM PROGRESS Observed: 07/30/2017 Status: COMPLETED Source: [place] 3:05 PM [facility] REPOSITORY O ID: [id number] Author: Chavez Samuel Service: (none) Author Type: Physician Type: Progress Notes Filed: 07/30/2017 4:21 PM Note Text: This note was created using [employer]. Subjective Lana Smyth is a 57 year old male here to establish care. He had no current PCP. He had multiple concerns. He was stressed and depressed due to chronic pain, insomnia, and family illness. He denied suicide ideations. He was drinking heavily on a chronic basis. He was trying to cut back on smoking due to shortness of breath. His provided his past history. PAST MEDICAL HISTORY Diagnosis Date - Cellulitis of left foot 03/30/2017 - Chronic neck pain 07/30/2017 injury 1997. - COPD (chronic obstructive pulmonary disease) (HCC) 06/23/2015 - DDD (degenerative disc disease), lumbar 07/30/2017 injury 1997 - Depressive disorder 07/30/2017 w/ injury 1997 PAST SURGICAL HISTORY Procedure Laterality Date - EGD 2011 - PAST SURGICAL HISTORY OF 1977 Steel plate put in left lower leg FAMILY HISTORY Problem Relation Age of Onset - Other [OTHER] Mother Killed in MVA 1962 - Diabetes Father - Heart Brother @ age 51 d/t [place] - Diabetes Brother - Lung Cancer [OTHER] Brother Age 68 - Parkinson's Disease [OTHER] Brother - Diabetes Sister - COPD Sister - Hypertension Sister - Diabetes Sister - Hypertension Sister - COPD Sister - Diabetes Sister - Hypertension Sister - COPD Sister - None Brother Social History Marital status: Unknown Spouse name: Years of education: Number of children: 2 Occupational History Occupation Employer Comment landlord Social History Main Topics Smoking status: Current Every Day Smoker Packs/day: 1.00 Years: 44.00 Start date: 1973 Smokeless status: Never Used Comment: 06/25 PPD x 3 months Alcohol use: Yes 63.0 oz/week 42 Cans of Beer (12oz) per week Comment: CAGE 3/4+ Drug use: Yes Frequency: 3.00 per week Special: Marijuana Comment: no ivda Social History Narrative Moved here from [place] 2 years ago. Lives w/ . Drives. On SSD. Rents trailer homes. Current Outpatient Prescriptions: albuterol HFA (PROVENTIL HFA, VENTOLIN HFA) 90 mcg/actuation inhaler Inhale 2 Puffs as instructed every 4 hours as needed. No current facility-administered medications for this visit. Review of Systems Constitutional: Negative for appetite change, chills, diaphoresis, fatigue, fever and unexpected weight change. HENT: Negative. Eyes: Negative. Respiratory: Positive for cough, chest tightness, shortness of breath and wheezing. Cardiovascular: Positive for chest pain and palpitations. Negative for leg swelling. Gastrointestinal: Positive for abdominal distention and abdominal pain. Negative for anal bleeding, blood in stool, constipation, diarrhea, nausea and vomiting. Genitourinary: Negative. Musculoskeletal: Positive for back pain, neck pain and neck stiffness. Negative for arthralgias, gait problem, joint swelling and myalgias. Skin: Negative. Neurological: Negative. Psychiatric/Behavioral: Positive for dysphoric mood and sleep disturbance. Negative for self-injury and suicidal ideas. The patient is not nervous/anxious. Objective BP 118/72 (BP Site: Right Arm, BP Position: Sitting, BP Cuff Size: Regular Adult) Pulse 80 Temp 37 ?C (98.6 ?F) (Left Tympanic) Resp 20 Ht 170.2 cm (5' 7) Wt 70.8 kg (156 lb) SpO2 97% BMI 24.43 kg/m2 Physical Exam Constitutional: No distress. HENT: Head: Normocephalic and atraumatic. Right Ear: External ear normal. Left Ear: External ear normal. Nose: Nose normal. Mouth/Throat: Oropharynx is clear and moist. Eyes: Conjunctivae and EOM are normal. Pupils are equal, round, and reactive to light. Neck: Neck supple. No JVD present. Carotid bruit is not present. No thyromegaly present. Cardiovascular: Normal rate, regular rhythm, S1 normal and S2 normal. No extrasystoles are present. Exam reveals no gallop. No murmur heard. Pulmonary/Chest: No accessory muscle usage. No respiratory distress. He has decreased breath sounds. He has wheezes. He has no rales. Abdominal: Soft. Bowel sounds are normal. He exhibits distension. He exhibits no mass. There is tenderness. There is no rebound and no guarding. No hernia. Equivocal fluid wave. No shifting dullness. Musculoskeletal: He exhibits deformity. He exhibits no edema or tenderness. Lumbar back: He exhibits decreased range of motion. He exhibits no tenderness, no deformity and no spasm. Left distal tibia scar and deformity. Lymphadenopathy: He has no cervical adenopathy. Neurological: He is alert. He has normal strength. No sensory deficit. Gait normal. Psychiatric: His speech is normal and behavior is normal. Thought content normal. He exhibits a depressed mood. PHQ-9=7 EKG normal. ASSESSMENT/PLAN: 1. Depressive disorder - ICD9: 311, ICD10: F32.9 (primary diagnosis) New patient. - CONSULT TO PSYCHOLOGY - CBC + DIFF - COMP METABOLIC PANEL - NORTRIPTYLINE 25 MG CAPSULE Discussed medication dosage, usage, goals of therapy, and side effects. Options were discussed. 2. DDD (degenerative disc disease), lumbar - ICD9: 722.52, ICD10: M51.36 Chronic low back pain - NORTRIPTYLINE 25 MG CAPSULE 3. Chronic neck pain - ICD9: 723.1, 338.29, ICD10: M54.2, G89.29 - NORTRIPTYLINE 25 MG CAPSULE 4. Chronic obstructive pulmonary disease, unspecified COPD type (HCC) - ICD9: 496, ICD10: J44.9 - Continue ALBUTEROL. - XR CHEST 2V FRONTAL/LAT 5. Tobacco use disorder - ICD9: 305.1, ICD10: F17.200 - Cessation encouraged. - No new medication for now. 6. Alcoholism (HCC) - ICD9: 303.90, ICD10: F10.20 Advised to limit consumption. - VITAMIN B12 BLOOD - FOLATE SERUM 7. Persistent insomnia - ICD9: 307.42, ICD10: G47.00 Discussed medication dosage, usage, goals of therapy, and side effects. - NORTRIPTYLINE 25 MG CAPSULE 8. Chest pain, unspecified type - ICD9: 786.50, ICD10: R07.9 Atypical, chronic for 2 years. EKG normal. - ECG COMPLETE W INTERPRETATION - LIPID PANEL BASIC 9. Palpitations - ICD9: 785.1, ICD10: R00.2 See above. - ECG COMPLETE W INTERPRETATION - LIPID PANEL BASIC 10. Need for vaccination - ICD9: V05.9, ICD10: Z23 - PNEUMOCOCCAL-13 VACCINE PCV-13 Chavez Samuel MD ALLERGIES ALLERGIES DATE TYPE / CODE NAME / CODE REACTION SEVERITY SOURCE 06/08/2018 Drug No Known Unknown [facility] Allergy/416 Allergies/C91703 Hospital 497456(SNOM 0388(RXNORM) Repository ED CT) Drug NO KNOWN [facility] Class/18752 ALLERGIES [place] 1003(SNOMED Repository CT) ENCOUNTERS ENCOUNTERS ADMIT/DISCHARGE ACCOUNT ADMITTING ENCOUNTER LOCATION SOURCE NUMBER CLASS 06/18/2018 [id number] Ambulatory [facility] ing:PT Repository 06/09/2018 [id number] Ambulatory Building:[facility] [place] Practices Repository 06/09/2018 [id number] Ambulatory [facility] ing:MTRAD Repository 06/08/2018/06/09/20 [id number] Emergency [address] ing:ED Repository 06/07/2018/06/07/20 [id number] Emergency [address] ing:ED Repository 04/08/2018/04/08/20 [id number] Emergency [address] ing:ED Repository 10/13/2017/10/14/19 [id number] Emergency [address] Hospital ing:ED Repository 07/30/2017/07/30/19 [id number] Ambulatory [address] Repository 07/30/2017/07/30/19 [id number] Ambulatory [address] Repository 07/30/2017/07/30/19 [id number] Ambulatory [address] Repository 07/30/2017/07/31/19 [id number] Ambulatory [address] Repository PAYERS PAYERS ENCOUNTER GUARANTOR PAYER SUBSCRIBER SOURCE 06/18/2018 LANA Dominique Primary LANA Dominique [place] [id number] E Insurance:MEDICARE BUNTINGDOB: Community FREEMAN PART A [facility] [id number] Number: Repository [id number]: [phone] [id number] [phone] () Date:1999-11-21 06/18/2018 Secondary NOT GIVENUNK [place] Insurance:SELF PAY [facility] Number: Effective Repository Date:2018-06-09 06/09/2018 Lana Dominique Primary Lana Dominique OHIP Practices BuntingDOB: Insurance:MedicarePol BuntingDOB: Repository E icy Number: [id number] [place] [address] AEffective E [facility], Date:[id number], [place] [address]Foo: Name:[facility] [place] [address]Gon: [id number], [place] () [address]FJ: [phone] () [phone] 06/09/2018 LANA Dominique Primary LANA [place] [id number] E Insurance:MEDICARE BUNTINGDOB: Community FREEMAN PART A [facility] [id number] Number: Repository [id number]: [phone] [id number] [phone] () Date:2018-06-09 06/09/2018 Secondary NOT GIVENUNK [place] Insurance:SELF PAY [facility] Number: Effective Repository Date:2018-06-09 06/08/2018 LANA Dominique Primary LANA Dominique [place] [id number] E Insurance:MEDICARE BUNTINGDOB: Community FREEMAN PART A [facility] [id number] Number: Repository [id number]: [phone] [id number] [phone] () Date:2018-06-08 06/08/2018 Secondary NOT GIVENUNK [place] Insurance:SELF PAY [facility] Number: Effective Repository Date:2018-06-08 06/07/2018 LANA Dominique Primary LANA [place] [id number] E Insurance:MEDICARE BUNTINGDOB: Community FREEMAN PART A [facility] [id number] Number: Repository [id number]: [id number] [phone] () Date:2018-06-07 06/07/2018 Secondary NOT GIVENUNK [place] Insurance:SELF PAY [facility] Effective Repository Date:2018-06-07 04/08/2018 LANA Dominique Primary LANA [place] [id number] E Insurance:MEDICARE BUNTINGDOB: Community FREEMAN PART A [facility] [id number], [place] Number: Repository [id number]: [phone] [id number] [phone] () Date:2018-04-08 04/08/2018 Secondary NOT GIVENUNK [place] Insurance:SELF PAY [facility] Number: Effective Repository Date:2018-04-08 10/13/2017 LANA Primary LANA [place] [id number] E Insurance:MEDICARE BUNTINGDOB: Community FREEMAN PART A [facility] [id number] Number: Repository [id number]: [phone] [id number] [phone] () Date:2017-10-13 10/13/2017 Secondary NOT GIVENUNK [place] Insurance:SELF PAY [facility] Number: Effective Repository Date:2017-10-13
== END 2018-06-07 11:32 | disposition home or self-care (01) ==
PROVIDERS: Emergency Provider Emergency Medicine
DX: L03.012 Cellulitis of left finger (principal); G89.29 Other chronic pain; M54.9 Dorsalgia, unspecified
CPT/HCPCS: 99283; A4216

== ENCOUNTER 2018-06-08 23:07 | Emergency (ER) | payer MEDICARE, SELFPAY ==
[2018-06-07 09:00] VITALS: BMI 23.6
[2018-06-08 23:08] VITALS: BP 143/77; PULSE 101; RESP 15; TEMP 36.4; O2SAT 97; BMI 22.2
[2018-06-08 23:10] VITALS: BP 123/84; PULSE 83; RESP 16; TEMP 36.8; O2SAT 98
--- NOTE | 2018-06-08 23:18 | RAD_ITS ---
STUDY: X-RAY - LEFT HAND REASON FOR EXAM: Male, 58 years old. Left index finger infection. TECHNIQUE: 3 view(s) of the hand. COMPARISON: None. FINDINGS: There is joint space narrowing of the radiocarpal articulation consistent with degenerative arthrosis. Normal distal radioulnar joint. Normal visualized carpal bones. There is widening of the scapholunate distance. There is degenerative arthrosis of the carpometacarpal (CMC) articulation of the thumb. Normal second through fifth carpometacarpal joints. Normal metacarpi. Normal metacarpophalangeal joint of the thumb. Normal interphalangeal joint of the thumb. Normal proximal and distal phalanges of the thumb. Normal metacarpophalangeal joints of the second through fifth fingers. Normal proximal and distal interphalangeal joints of the second through fifth fingers. Normal phalanges of the second through fifth fingers. There is soft tissue swelling of the index finger. There is also some soft tissue swelling of the thumb. RAD/Hand Min 3 Views IMPRESSION: 1. Diffuse soft tissue swelling of the index finger consistent with clinical exam. There is no other evidence to suggest osteomyelitis. 2. 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 Electronically Signed: Donna Stern MD at 0:19 EST , Service support ,
--- NOTE | 2018-06-08 23:20 | ED.VISSUMM ---
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 He states he was doing local wound care and then 3 days ago it began to swell and turn red. He was seen in the emergency department yesterday had a I&D that did not express significant pus. He was placed on Keflex. He states that the swelling and the redness is worse. He states the pain is not controlled. He denies any fevers. Denies any rash of the arms. He notes his tetanus is up-to-date. He is right-handed. Physical Examination: Vital signs are stable Gen: Well-nourished well-developed Head: Normocephalic atraumatic Eyes: Perrl EOMI ENT: TMs clear no rhinorrhea moist mucous membranes Neck: Supple no lymphadenopathy no JVD nontender CVS: Regular rate rhythm no murmurs normal S1-S2 Respiratory: No distress clear to auscultation bilaterally chest nontender Abdomen: Soft nontender nondistended normal bowel sounds no masses Back: Nontender Extremity: The left index finger is swollen. There is erythema from the DIP joint extending proximally onto the dorsum of the hand across to the fourth MCP joint. There is no lymphangitic streaking. The erythema on the finger is not circumferential. He is neurovascular intact distally. This does not appear to be a extensor tenosynovitis. Patient is able to flex and extend. Skin: Normal color no rash Neuro: alert orientated ?3 CN II-XII intact normal strength sensation reflexes gait cerebellar Psych: Normal affect normal mood Test Results: CBC BMP and hand x-ray was obtained. Culture was also obtained from the wound. Emergency Department Course and Treatment: Patient received IV clindamycin. We are going to broaden coverage with some Bactrim. Will await culture and sensitivities. Patient has not scheduled a follow-up appointment. He does not know why he has not done so. I advised him that he should call the office to arrange early follow-up and if he cannot be seen within 24-48 hrs. he should return to the emergency department for repeat examination. He should return earlier if he feels it is worsening or if he is having fever. He was advised that this can turn into a very serious infection that would require hospitalization and possibly surgery. Impression: 1. Left index finger cellulitis 2. Left hand cellulitis This note was generated with [employer] dictation software. It may contain incorrect words, spelling, and punctuation that were not noted in review of the chart prior to signing ED Disposition - Plan for ED Patient: Disposition: Home or Assisted Living Chief Complaint: Cellulitis Instructions: Discharge Instructions for Cellulitis Prescriptions: Smz/Tmp Ds [Bactrim Ds] 1 tab PO BID #20 tab Referrals: Jeremiah Da Silva MD [STAFF PHYSICIAN] - As soon as possible Additional Instructions: If you cannot arrange follow-up in the next 24-48 hours please return to the emergency room for repeat evaluation If you feel that the infection continues to worsen please return for repeat examination
--- NOTE | 2018-06-08 23:23 | ED.DCSUM_ITS ---
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 He states he was doing local wound care and then 3 days ago it began to swell and turn red. He was seen in the emergency department yesterday had a I&D that did not express significant pus. He was placed on Keflex. He states that the swelling and the redness is worse. He states the pain is not controlled. He denies any fevers. Denies any rash of the arms. He notes his tetanus is up-to-date. He is right-handed. Physical Examination: Vital signs are stable Gen: Well-nourished well-developed Head: Normocephalic atraumatic Eyes: Perrl EOMI ENT: TMs clear no rhinorrhea moist mucous membranes Neck: Supple no lymphadenopathy no JVD nontender CVS: Regular rate rhythm no murmurs normal S1-S2 Respiratory: No distress clear to auscultation bilaterally chest nontender Abdomen: Soft nontender nondistended normal bowel sounds no masses Back: Nontender Extremity: The left index finger is swollen. There is erythema from the DIP joint extending proximally onto the dorsum of the hand across to the fourth MCP joint. There is no lymphangitic streaking. The erythema on the finger is not circumferential. He is neurovascular intact distally. This does not appear to be a extensor tenosynovitis. Patient is able to flex and extend. Skin: Normal color no rash Neuro: alert orientated ?3 CN II-XII intact normal strength sensation reflexes gait cerebellar Psych: Normal affect normal mood Test Results: CBC BMP and hand x-ray was obtained. Culture was also obtained from the wound. Emergency Department Course and Treatment: Patient received IV clindamycin. We are going to broaden coverage with some Bactrim. Will await culture and sensitivities. Patient has not scheduled a follow-up appointment. He does not know why he has not done so. I advised him that he should call the office to arrange early follow-up and if he cannot be seen within 24-48 hrs. he should return to the emergency department for repeat examination. He should return e arlier if he feels it is worsening or if he is having fever. He was advised that this can turn into a very serious infection that would require hospitalization and possibly surgery. Impression: 1. Left index finger cellulitis 2. Left hand cellulitis This note was generated with [employer] dictation software. It may contain incorrect words, spelling, and punctuation that were not noted in review of the chart prior to signing ED Disposition - Plan for ED Patient: Disposition: Home or Assisted Living Chief Complaint: Cellulitis Instructions: Discharge Instructions for Cellulitis Prescriptions: Smz/Tmp Ds [Bactrim Ds] 1 tab PO BID #20 tab Referrals: Jeremiah Da Silva MD [STAFF PHYSICIAN] - As soon as possible Additional Instructions: If you cannot arrange follow-up in the next 24-48 hours please return to the emergency room for repeat evaluation If you feel that the infection continues to worsen please return for repeat examination
[2018-06-08] MEDS: Ondansetron 4 MG/2 ML Vial IV (23:37)
[2018-06-08] MEDS: Morphine 4 MG/ML Syringe IV (23:37)
[2018-06-09 00:10] VITALS: BP 118/74; PULSE 84; RESP 16; TEMP 36.8; O2SAT 96
[2018-06-09 00:11] LABS: Anion Gap 11 (5-15); BUN 7 mg/dL (7-18); BUN/Creat Ratio 9.2 RATIO (10-20); Calcium,Total 8.2 mg/dL (8.5-10.1); Chloride 99 mmol/L (98-107); Creatinine, Serum 0.76 mg/dL (0.70-1.30); EST Glomerular Filtration Rate 111 mL/min (>60); Est Glom Filt Rate - Afr Amer 134 mL/min (>60); Glucose 108 mg/dL (74-106); Potassium 3.3 mmol/L (3.5-5.1); Sodium Level 135 mmol/L (136-145)
[2018-06-09 00:12] LABS: Absolute Lymphocyte Count 2.43 X10^3/ul (0.83-4.51); Absolute Neutrophil Count 4.3 X10^3/uL (2.0-7.7); Basophil# 0.05 X10^3/uL; Basophil% 0.6 % (0-1); Eosinophil# 0.33 X10^3/uL; Eosinophils% 4.2 % (0-5); Lymphocyte # 2.43 X10^3/ul (4.0); Lymphocyte % 31.3 % (19-41); Mean Corp Hgb Conc 34.1 g/gl (32-36); Mean Corpuscular Hgb 32.3 pg (27.0-32.0); Mean Corpuscular Volume 94.6 fL (80-94); Mean Platelet Vol. 9.7 fl (6.2-12.0); Monocyte# 0.62 X10^3/uL; Neutrophil # 4.33 X10^3/uL (2.7-7.7); Neutrophil % 55.8 % (47-70); Platelet Count 271 K/mm3 (150-450); RBC Distribution Width CV 12.3 % (11.6-14.6); RBC Distribution Width SD 41.9 fl (35.1-43.9); Red Blood Count 4.65 M/mm3 (4.6-6.2); White Blood Count 7.8 K/mm3 (4.4-11.0)
[2018-06-09 00:15] LABS: POSITIVE COUNT NO; POSITIVE DIFFERENTIAL NO; POSITIVE MORPHOLOGY NO
[2018-06-09 00:32] LABS: Lactic Acid 1.9 mmol/L (0.4-2.0)
[2018-06-09 01:16] VITALS: BP 114/69; PULSE 91; PULSE 92; RESP 18; O2SAT 95
--- OUTSIDE RECORDS SUMMARY | 2018-09-10 10:40 | XMS RPT_ITS ---
[...] Primary Care Unavailable Erik Tate Attending Unavailable AdamAngie Attending Unavailable Adam, Angie Primary Care Unavailable Adam Angie Attending Unavailable Adam, Angie Referring Unavailable Adam, Angie Primary Care Unavailable Heather Garcia Attending Unavailable Chavez Samuel Primary Care Unavailable Enrique Wright Attending Unavailable Primay Care Physicia, No Primary Care Unavailable PROBLEMS PROBLEMS DATE TYPE CONDITION / CODE ATTENDING STATUS SOURCE 06/07/2018 Unknown L08.9 - Local Mino Ramos Active [place] [facility] subcutaneous Repository tissue, unspecified / L08.9(ICD-10) 07/30/2017 Active Major depressive NA Active [facility] disorder, single [place] episode, Repository unspecified / F32.9(ICD-10) 07/30/2017 Active Alcohol dependence, NA Active [facility] uncomplicated / [place] F10.20(ICD-10) Repository 07/30/2017 Active Chest pain, NA Active [facility] unspecified / [place] R07.9(ICD-10) Repository 07/30/2017 Active Palpitations / NA Active [facility] R00.2(ICD-10) [place] Repository 07/30/2017 Active Chronic obstructive NA Active [facility] pulmonary disease, [place] unspecified / Repository J44.9(ICD-10) PROCEDURES PROCEDURES No Procedure Records FoundRESULTS RESULTS EMERGENCY DEPARTMENT Observed: 06/15/2018 Status: F Source: [place] SUMMARY 7:03 AM [facility] REPOSITORY [facility] Medical Records Department [address] [place] [address] Emergency Department Summary 06/08/18 2320 MR#: [id number] Acct: [id number] Name: LANA SMYTH Rep #: [id number] : 1960 58 From: Erik Tate DO PCP: Care Physician, No Primary Status: DEP ER - ER Visit Summary Date of Service: 06/08/18 Chief Complaint: Left index finger infection History of Present Illness: The patient is a 58 M who states that 3 weeks ago he cut the dorsum of his left index finger at the PIP joint 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 He states he was doing [...] hand cellulitis This note was generated with Mixertech dictation software. It may contain incorrect words, [...] your Primary Care Provider. Call [facility] ([phone]) or report to the closest Emergency Room. Call 911 if necessary. 06/15/18 0703 <Electronically signed by Erik Tate DO> Date Erik Tate DO Cosigner Signature (If Indicated): Date CC: No Primary Care Physician L/S SPINE MIN 4 Observed: 06/09/2018 Status: F Source: [place] VIEWS 12:09 PM [facility] REPOSITORY [facility] Imaging Services [address] [place] [address] L/S Spine Min 4 Views MR#: [id number] Acct: [id number] Name: LANA SMYTH Rep #: [id number] : 1960 58 From: Cam Tucker DO PCP: Angie Medina DO Status: REG CLI Study: L/S Spine Min 4 Views Date of Exam: 06/09/18 Exam# [id number] Ordering Dr: Angie Medina DO STUDY: X-RAY [...] , Service support , CC: Angie Medina Profiling Machine Operator: Signed Observed: 06/09/2018 Status: F Source: [place] CULTURE, WOUND 1:12 AM [facility] REPOSITORY Order Date: 06/09/18 Has pt arrived? Y Gram Stain Gram Stain 4+ White Blood Cells No organisms seen Wound Culture Possible skin contamination, further Identification and sensitivity will be performed only by physician's request. ORGANISM 1: Coag Negative Staph Amount Growth Very Rare Performed By: #### M100.1400 #### [facility] [address] [facility] [place], [address] Observed: 06/08/2018 Status: F Source: [place] CULTURE, BLOOD (WB) 11:45 PM [facility] REPOSITORY BC No growth in 5 days. Performed By: #### M200.1000 #### [facility] [address] [facility] [place], [address] BASIC METABOLIC Collected: 06/08/2018 Status: F Source: [place] PROFILE (BMP) 11:40 PM [facility] REPOSITORY TYPE CODE TESTS RESULT OUT OF [...] Normal 11 Performed By: #### L500.2500 #### [facility] [address] [place], [address] CBC W/DIFF, AUTOMATED Collected: 06/08/2018 Status: F Source: [place] 11:40 PM [facility] REPOSITORY TYPE CODE TESTS RESULT OUT OF [...] Lymph 2.43 Performed By: #### L100.0100 #### [facility] [address] [facility] [place], [address] LACTIC ACID Collected: 06/08/2018 Status: F Source: [place] 11:40 PM [facility] REPOSITORY Order Comment: Yes/No query for Sepsis Lactate Rule Y TYPE CODE TESTS RESULT OUT OF RANGE REFERENCE UNITS LAB L503.6005 0.4-2.0 mmol/L Normal LACTIC ACID 1.9 Performed By: #### L503.6005 #### [facility] [address] [facility] [place], [address] Observed: 06/08/2018 Status: F Source: [place] CULTURE, BLOOD (WB) 11:40 PM [facility] REPOSITORY BC No growth in 5 days. Performed By: #### M200.1000 #### [facility] [address] [place], [address] HAND MIN 3 VIEWS Observed: 06/08/2018 Status: F Source: [place] 11:19 PM [facility] REPOSITORY [facility] Imaging Services [address] [place] [address] Hand Min 3 Views MR#: [id number] Acct: [id number] Name: LANA SMYTH Rep #: [id number] : 1960 M 58 From: Donna Stern MD PCP: Care Physician, No Primary Status: REG ER Study: Hand Min 3 Views Date of Exam: 06/08/18 Exam# [id number] Ordering Dr: Erik Tate DO STUDY: X-RAY - LEFT HAND REASON [...] No Primary Care Physician; Erik Tate DO Profiling Machine Operator: Signed DISCHARGE INSTRUCTION Observed: 06/07/2018 Status: F Source: [place] 11:33 AM [facility] Medical Records Department [address] [place] [address] Discharge Instruction 06/07/18 1110 MR#: [id number] Acct: [id number] Name: LANA SMYTH Rep #: [id number] : 1960 58 From: Mino Ramos MD PCP: Care Physician, No Primary Status: DEP ER ED Disposition - Plan for ED Patient: Disposition: Home or Assisted Living Chief Complaint: Wound Check Instructions: ED Infec Skin Cellulitis Prescriptions: Hydrocodone Bitart/Apap 5-325 [[place] 5MG-325MG] 1 tab PO Q4H PRN PRN [...] your Primary Care Provider. Call [facility] ([phone]) or report to the closest Emergency Room. Call 911 if necessary. 06/07/18 1133 <Electronically signed by Mino Ramos MD> Date Mino Ramos MD Cosigner Signature (If Indicated): Date CC: No Primary Care Physician EMERGENCY DEPARTMENT Observed: 06/07/2018 Status: F Source: [place] SUMMARY 11:33 AM [facility] REPOSITORY [facility] Medical Records Department [address] [place] [address] Emergency Department Summary 06/07/18 0934 MR#: [id number] Acct: [id number] Name: LANA SMYTH Rep #: [id number] : 1960 58 From: Mino Ramos MD [...] by ER This note was generated with Mixertech dictation software. It may contain incorrect words, [...] your Primary Care Provider. Call [facility] ([phone]) or report to the closest Emergency Room. Call 911 if necessary. 06/07/18 1133 <Electronically signed by Mino Ramos MD> Date Mino Ramos MD Cosigner Signature (If Indicated): Date CC: No Primary Care Physician EMERGENCY DEPARTMENT Observed: 04/08/2018 Status: F Source: [place] SUMMARY 11:19 PM [facility] REPOSITORY [facility] Medical Records Department [address] [place] [address] Emergency Department Summary 04/08/18 1543 MR#: [id number] Acct: [id number] Name: LANA SMYTH Rep #: [id number] : 1960 58 From: Enrique Wright MD [...] back pain. This note was generated with Mixertech dictation software. It may contain incorrect words, [...] your Primary Care Provider. Call [facility] ([phone]) or report to the closest Emergency Room. Call 911 if necessary. 04/08/18 2319 <Electronically signed by Enrique Wright MD> Date Enrique Wright MD Cosigner Signature (If Indicated): Date CC: No Primary Care Physician EMERGENCY DEPARTMENT Observed: 10/14/2017 Status: F Source: [place] SUMMARY 12:34 AM [facility] REPOSITORY [facility] Medical Records Department [address] [place] [address] Emergency Department Summary 10/13/17 1837 MR#: [id number] Acct: [id number] Name: LANA SMYTH Rep #: [id number] : 1960 57 From: Heather Garcia MD [...] with spasm This note was generated with Mixertech dictation software. It may contain incorrect words, [...] problems, contact your Primary Care Provider. Call [facility] ([phone]) or report to the closest Emergency Room. Call 911 if necessary. 10/14/17 0034 <Electronically signed by Heather Garcia MD> Date Heather Garcia MD Cosigner Signature (If Indicated): Date CC: Chavez Samuel MD DISCHARGE INSTRUCTION Observed: 10/13/2017 Status: F Source: [place] 6:41 PM [facility] REPOSITORY [facility] Medical Records Department [address] [place] [address] Discharge Instruction 10/13/171839 MR#: [id number] Acct: [id number] Name: LANA SMYTH Rep #: [id number] : 1960 57 From: Heather Garcia MD [...] your Primary Care Provider. Call [facility] ([phone]) or report to the closest Emergency Room. Call 911 if necessary. 10/13/171840 <Electronically signed by Heather Garcia MD> Date Heather Garcia MD Cosigner Signature (If Indicated): Date CC: No Primary Care Physician; Chavez Samuel MD COMP METABOLIC PANEL Collected: 07/30/2017 Status: F Source: [place] 3:35 PM [facility] REPOSITORY TYPE CODE TESTS RESULT OUT OF REFERENCE UNITS RANGE LAB TP 6.3-8.0 g/dL Protein, Total 7.9 LAB ALB 3.9-4.9 g/dL Albumin 4.3 LAB CA 8.5-10.2 mg/dL Calcium, Total 9.4 LAB TBIL 0.2-1.3 mg/dL Bilirubin, Total 0.4 LAB ALKP 36-108 U/L Alkaline High Phosphatase 117 LAB AST 14-40 U/L AST High 101 LAB GLU 74-99 mg/dL Glucose 93 Result Comment: The [place] Diabetes Association (ADA) provides guidance for cutoff [...] Standards of Medical Care in Diabetes 2016, [place] Diabetes Association. Diabetes Care. 2016.39(Suppl 1). LAB [...] CBCDIF, B12, SERFOL #### [facility] [address] [place], [place] [address] LIPID PANEL, BASIC Collected: 07/30/2017 Status: F Source: [place] 3:35 PM [facility] REPOSITORY TYPE CODE TESTS RESULT [...] Desk Reference: National Heart, Lung, and Blood [place]. National Institutes of Health. 2001: NIH Publication No. 01-3305. 2. An International Atherosclerosis Society position paper: global recommendations for the management of dyslipidemia: executive summary, Atherosclerosis. 2014: 232(2):410-413. Performed By: #### CMP, LIPB, CBCDIF, B12, SERFOL #### [facility] [address] [place], [place] [address] CBC AND DIFFERENTIAL Collected: 07/30/2017 Status: F Source: [place] 3:35 PM [facility] REPOSITORY TYPE CODE TESTS RESULT [...] k/uL Abs Lymph 2.27 LAB AMONO % Gratiot% 9.1 LAB AAMONO <0.87 k/uL Abs Gratiot 0.61 LAB AEOS % Eosin% 5.2 LAB AAEOS <0.46 k/uL Abs Eosin 0.35 LAB ABASO % Baso% 0.9 LAB AABASO <0.11 k/uL Abs Baso 0.06 LAB AUNRBC 0 /100 WBC NRBCs 0.0 LAB ABNRBC <0.01 k/uL Absolute nRBC <0.01 LAB DTYP DTYPE Auto Diff Performed By: #### CMP, LIPB, CBCDIF, B12, SERFOL #### [facility] [address] [place], [place] [address] VITAMIN B12 Collected: 07/30/2017 Status: F Source: [place] 3:35 PM [facility] REPOSITORY TYPE CODE TESTS RESULT OUT OF REFERENCE UNITS RANGE LAB B12 232-1245 pg/mL Vitamin B12 319 Performed By: #### CMP, LIPB, CBCDIF, B12, SERFOL #### [facility] [address] [place], [place] [address] FOLATE, SERUM Collected: 07/30/2017 Status: F Source: [place] 3:35 PM [facility] REPOSITORY TYPE CODE TESTS RESULT OUT OF REFERENCE UNITS RANGE LAB SERFOL >4.7 ng/mL Folate, 13.5 Serum Performed By: #### CMP, LIPB, CBCDIF, B12, SERFOL #### [facility] [address] [place], [place] [address] XR CHEST 2V FRONTAL/LAT Observed: 07/30/2017 Status: F Source: [place] 3:34 PM [facility] REPOSITORY * * *Final Report* [...] are intact IMPRESSION: No acute cardiopulmonary process. Profiling Machine Operator: PSCB Transcribe Date/Time: Jul 30 2017 3:46P Dictated by : KRYSTAL MATOS MD This examination was interpreted and the report reviewed and electronically signed by: KRYSTAL MATOS MD on Jul 30 2017 3:47PM EST [id number] Observed: 07/30/2017 Status: COMPLETED Source: [place] 3:27 PM [facility] REPOSITORY HNO ID: [id number] Author: Yudith Bashir (Rt) Aly Cannon Service: (none) Author Type: Refining Equipment Operator Type: Progress Notes Filed: 07/30/2017 [...] PM PROGRESS Observed: 07/30/2017 Status: COMPLETED Source: [place] 3:05 PM [facility] [place] REPOSITORY O ID: [id number] Author: Chavez Samuel Service: (none) Author Type: Physician Type: Progress Notes Filed: 07/30/2017 4:21 PM Note Text: This note was created using Prognosis Health Information Systemsriter. Subjective Lana Smyth is a 57 year [...] - Heart Brother @ age 51 d/t [place] - Diabetes Brother - Lung Cancer [OTHER] [...] ivda Social History Narrative Moved here from [place] 2 years ago. Lives w/ . Drives. [...] SEVERITY SOURCE 06/08/2018 Drug No Known Unknown [facility] Allergy/416 Allergies/X58388 Hospital 330889(SNOM 0388(RXNORM) Repository ED CT) Drug NO KNOWN [facility] Class/63568 ALLERGIES [place] 1003(SNOMED Repository CT) ENCOUNTERS ENCOUNTERS ADMIT/DISCHARGE ACCOUNT ADMITTING ENCOUNTER LOCATION SOURCE NUMBER CLASS 06/18/2018 [id number] Ambulatory [facility] ing:PT Repository 06/09/2018 [id number] Ambulatory Building:[facility] [place] Practices Repository 06/09/2018 [id number] Ambulatory [facility] ing:MTRAD Repository 06/08/2018/06/09/20 [id number] Emergency [address] ing:ED Repository 06/07/2018/06/07/20 [id number] Emergency [address] ing:ED Repository 04/08/2018/04/08/20 [id number] Emergency [address] ing:ED Repository 10/13/2017/10/14/19 [id number] Emergency [address] Hospital ing:ED Repository 07/30/2017/07/30/19 [id number] Ambulatory [address] Repository 07/30/2017/07/30/19 [id number] Ambulatory [address] Repository 07/30/2017/07/30/19 [id number] Ambulatory [address] Repository 07/30/2017/07/31/19 [id number] Ambulatory [address] Repository PAYERS PAYERS ENCOUNTER GUARANTOR PAYER SUBSCRIBER SOURCE 06/18/2018 LANA Dominique Primary LANA Dominique [place] [id number] E Insurance:MEDICARE BUNTINGDOB: Community [place] PART A [facility] [id number] Number: Repository [id number]: [phone] [id number] [phone] () Date:1997-11-21 06/18/2018 Secondary NOT GIVENUNK [place] Insurance:SELF PAY [facility] Number: Effective Repository Date:2018-06-09 06/09/2018 Lana Dominique Primary Lana Dominique OHIP Practices BuntingDOB: Insurance:MedicarePol BuntingDOB: Repository E icy Number: [id number] [address] AEffective E [facility], Date:[id number], [place] [address]Aqy: Name:[facility] [place] [address]Mnm: [id number], [place] () [address]BW: [phone] () [phone] 06/09/2018 LANA Dominique Primary LANA [place] [id number] E Insurance:MEDICARE BUNTINGDOB: Community [employer] PART A [facility] [id number], [place] Number: Repository [id number]: [phone] [id number] [phone] () Date:2018-06-09 06/09/2018 Secondary NOT GIVENUNK [place] Insurance:SELF PAY [facility] Number: Effective Repository Date:2018-06-09 06/08/2018 LANA Dominique Primary LANA Dominique [place] [id number] E Insurance:MEDICARE BUNTINGDOB: Community [employer] PART A [facility] [id number], [place] Number: Repository [id number]: [phone] [id number] [phone] () Date:2018-06-08 06/08/2018 Secondary NOT GIVENUNK [place] Insurance:SELF PAY [facility] Number: Effective Repository Date:2018-06-08 06/07/2018 LANA Dominique Primary LANA [place] [id number] E Insurance:MEDICARE BUNTINGDOB: Community [employer] PART A [facility] [id number], [place] Number: Repository [id number]: [id number] [phone] () Date:2018-06-07 06/07/2018 Secondary NOT GIVENUNK [place] Insurance:SELF [facility] Effective Repository Date:2018-06-07 04/08/2018 LANA Dominique Primary LANA [place] [id number] E Insurance:MEDICARE BUNTINGDOB: Community [employer] PART A [facility] [id number] Number: Repository [id number]: [phone] [id number] [phone] () Date:2018-04-08 04/08/2018 Secondary NOT GIVENUNK [place] Insurance:SELF PAY [facility] Number: Effective Repository Date:2018-04-08 10/13/2017 LANA Primary LANA [place] [id number] E Insurance:MEDICARE BUNTINGDOB: Community FRE[place]AN PART A [facility] [id number], [place] Number: Repository [id number]: [id number] [phone] () Date:2017-10-13 10/13/2017 Secondary NOT GIVENUNK [place] Insurance:SELF PAY [facility] Number: Effective Repository Date:2017-10-13
== END 2018-06-09 01:24 | disposition home or self-care (01) ==
PROVIDERS: Emergency Provider Emergency Medicine
DX: L03.012 Cellulitis of left finger (principal); L03.114 Cellulitis of left upper limb; Z72.0 Tobacco use
CPT/HCPCS: 73130; 80048; 83605; 85025; 87040; 87070; 87205; 96365; 96375; 99283; J7040; J2405

== ENCOUNTER → 2018-06-09 12:05 | Outpatient (CLI) | payer MEDICARE, SELFPAY ==
[2018-06-08 23:08] VITALS: BMI 22.2
--- NOTE | 2018-06-09 12:08 | RAD_ITS ---
STUDY: X-RAY - LUMBAR SPINE REASON FOR EXAM: Male, 58 years old. Low back pain TECHNIQUE: 5 view(s) of the lumbar spine were obtained. COMPARISON: None FINDINGS: Normal lumbar lordosis. There is no substantial scoliosis. There is a normal alignment of the vertebrae. There is multilevel endplate spondylosis of the lumbar vertebrae. There is multi-level degenerative disc disease with multi-level disc space narrowing. There is no demonstrated fracture. The soft tissue structures are unremarkable. RAD/L/S Spine Min 4 Views IMPRESSION: Degenerative changes of the spine, as detailed above. Electronically Signed: Cam Tucker DO at 12:59 EST Tel , Service support ,
--- OUTSIDE RECORDS SUMMARY | 2018-09-10 21:42 | XMS RPT_ITS ---
:1960 Author Organization OHIP Care Team Providers Name Role Phone CHAVEZ SAMUEL Referring Unavailable CHAVEZ SAMUEL Referring Unavailable CHAVEZ SAMUEL Attending Unavailable CHAVEZ SAMUEL Referring Unavailable Adam DO Angie Attending Unavailable Adam DO, Angie Consulting Unavailable Primay Care Physicia, No Primary Care Unavailable Erik Tate Attending Unavailable Adam, Angie Attending Unavailable Adam, Angie Primary Care Unavailable Adam Angie Attending Unavailable Adam, Angie Referring Unavailable Adam, Angie Primary Care Unavailable Enrique Wright Attending Unavailable Primay Care Physicia, No Primary Care Unavailable Heather Garcia Attending Unavailable Chavez Samuel Primary Care Unavailable Primay Care Physicia, No Primary Care Unavailable Mino Ramos Attending Unavailable PROBLEMS PROBLEMS DATE TYPE CONDITION / CODE ATTENDING STATUS SOURCE 06/07/2018 Unknown L08.9 - Local Mino Ramos Active [place] [facility] subcutaneous Repository tissue, unspecified / L08.9(ICD-10) 07/30/2017 Active Major depressive NA Active [facility] disorder, single [place] episode, Repository unspecified / F32.9(ICD-10) 07/30/2017 Active Alcohol dependence, NA Active [facility] uncomplicated / [place] F10.20(ICD-10) Repository 07/30/2017 Active Chronic obstructive NA Active [facility] pulmonary disease, [place] unspecified / Repository J44.9(ICD-10) 07/30/2017 Active Chest pain, NA Active [facility] unspecified / [place] R07.9(ICD-10) Repository 07/30/2017 Active Palpitations / NA Active [facility] R00.2(ICD-10) [place] Repository PROCEDURES PROCEDURES No Procedure Records FoundRESULTS RESULTS EMERGENCY DEPARTMENT Observed: 06/15/2018 Status: F Source: [place] SUMMARY 7:03 AM [facility] REPOSITORY [facility] Medical Records Department [address] 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 He states he was doing [...] hand cellulitis This note was generated with [employer] dictation software. It may contain incorrect words, [...] your Primary Care Provider. Call [facility] ([phone]) or report to the closest Emergency Room. Call 911 if necessary. 06/15/18 0703 <Electronically signed by Erik Tate DO> Date Erik Tate DO Cosigner Signature (If Indicated): Date CC: No Primary Care Physician L/S SPINE MIN 4 Observed: 06/09/2018 Status: F Source: [place] VIEWS 12:09 PM [facility] REPOSITORY [facility] Imaging Services [address] [place] [address] L/S Spine Min 4 Views MR#: [id number] Acct: [id number] Name: LANA SMYTH Rep #: [id number] : 1960 58 From: Cam Tucker DO PCP: Angie Medina DO Status: REG CLI Study: L/S Spine Min 4 Views Date of Exam: 06/09/18 Exam# [id number] Ordering Dr: Angie Medina DO STUDY: X-RAY [...] , Service support , CC: Angie Medina Wind Project Manager: Signed Observed: 06/09/2018 Status: F Source: [place] CULTURE, WOUND 1:12 AM [facility] REPOSITORY Order Date: 06/09/18 Has pt arrived? Y Gram Stain Gram Stain 4+ White Blood Cells No organisms seen Wound Culture Possible skin contamination, further Identification and sensitivity will be performed only by physician's request. ORGANISM 1: Coag Negative Staph Amount Growth Very Rare Performed By: #### M100.1400 #### [facility] [address] [facility] [place], [address] Observed: 06/08/2018 Status: F Source: [place] CULTURE, BLOOD (WB) 11:45 PM [facility] RE[facility] BC No growth in 5 days. Performed By: #### M200.1000 #### [facility] [address] [facility] [place], [address] BASIC METABOLIC Collected: 06/08/2018 Status: F Source: [place] PROFILE (BMP) 11:40 PM [facility] RE[facility]IT[facility] TYPE CODE TESTS RESULT OUT OF [...] Normal 11 Performed By: #### L500.2500 #### [facility] [address] [place], [address] CBC W/DIFF, AUTOMATED Collected: 06/08/2018 Status: F Source: [place] 11:40 PM [facility] REPOSITORY TYPE CODE TESTS RESULT OUT OF [...] Lymph 2.43 Performed By: #### L100.0100 #### [facility] [address] [facility] [place], [address] LACTIC ACID Collected: 06/08/2018 Status: F Source: [place] 11:40 PM [facility] Order Comment: Yes/No query for Sepsis Lactate Rule Y TYPE CODE TESTS RESULT OUT OF RANGE REFERENCE UNITS LAB L503.6005 0.4-2.0 mmol/L Normal LACTIC ACID 1.9 Performed By: #### L503.6005 #### [facility] [address] [facility] [place], [address] Observed: 06/08/2018 Status: F Source: [place] CULTURE, BLOOD (WB) 11:40 PM [facility] BC No growth in 5 days. Performed By: #### M200.1000 #### [facility] [address] [place], [address] HAND MIN 3 VIEWS Observed: 06/08/2018 Status: F Source: [place] 11:19 PM [facility] REPOSIT[facility] Imaging Services [address] [place] [address] Hand Min 3 Views MR#: [id number] Acct: [id number] Name: LANA SMYTH Rep #: [id number] : 1960 M 58 From: Donna Stern MD PCP: Care Physician, No Primary Status: REG ER Study: Hand Min 3 Views Date of Exam: 06/08/18 Exam# [id number] Ordering Dr: Erik Tate DO STUDY: X-RAY [...] No Primary Care Physician; Erik Tate DO Wind Project Manager: Signed DISCHARGE INSTRUCTION Observed: 06/07/2018 Status: F Source: [place] 11:33 AM [facility] Medical Records Department [address] [place] [address] Discharge Instruction 06/07/18 1110 MR#: [id number] Acct: [id number] Name: LANA SMYTH Rep #: [id number] : 1960 58 From: Mino Ramos MD PCP: Care Physician, No Primary Status: DEP ER ED Disposition - Plan for ED Patient: Disposition: Home or Assisted Living Chief Complaint: Wound Check Instructions: ED Infec Skin Cellulitis Prescriptions: Hydrocodone Bitart/Apap 5-325 [[place] 5MG-325MG] 1 tab PO Q4H PRN PRN [...] your Primary Care Provider. Call [facility] ([phone]) or report to the closest Emergency Room. Call 911 if necessary. 06/07/18 1133 <Electronically signed by Mino Ramos MD> Date Mino Ramos MD Cosigner Signature (If Indicated): Date CC: No Primary Care Physician EMERGENCY DEPARTMENT Observed: 06/07/2018 Status: F Source: [place] SUMMARY 11:33 AM [facility] REPOSIT[facility] Medical Records Department [address] [place] [address] Emergency Department Summary 06/07/18 0934 MR#: [id number] Acct: [id number] Name: LANA SMYTH Rep #: [id number] : 1960 58 From: Mino Ramos MD [...] by ER This note was generated with [employer] dictation software. It may contain incorrect words, [...] your Primary Care Provider. Call [facility] ([phone]) or report to the closest Emergency Room. Call 911 if necessary. 06/07/18 1133 <Electronically signed by Mino Ramos MD> Date Mino Ramos MD Cosigner Signature (If Indicated): Date CC: No Primary Care Physician EMERGENCY DEPARTMENT Observed: 04/08/2018 Status: F Source: [place] SUMMARY 11:19 PM [facility] REPOSIT[facility] Medical Records Department [address] [place] [address] Emergency Department Summary 04/08/18 1543 MR#: [id number] Acct: [id number] Name: LANA SMYTH Rep #: [id number] : 1960 58 From: Enrique Wright MD [...] back pain. This note was generated with [employer] dictation software. It may contain incorrect words, [...] your Primary Care Provider. Call [facility] ([phone]) or report to the closest Emergency Room. Call 911 if necessary. 04/08/18 2319 <Electronically signed by Enrique Wright MD> Date Enrique Wright MD Cosigner Signature (If Indicated): Date CC: No Primary Care Physician EMERGENCY DEPARTMENT Observed: 10/14/2017 Status: F Source: JORDAN SUMMARY 12:34 AM [facility] REPOSIT[facility] Medical Records Department [address] [place] [address] Emergency Department Summary 10/13/17 1837 MR#: [id number] Acct: [id number] Name: LANA SMYTH Rep #: [id number] : 1960 57 From: Heather Garcia MD [...] with spasm This note was generated with [employer] dictation software. It may contain incorrect words, [...] problems, contact your Primary Care Provider. Call [facility] ([phone]) or report to the closest Emergency Room. Call 911 if necessary. 10/14/17 0034 <Electronically signed by Heather Garcia MD> Date Heather Garcia MD Cosigner Signature (If Indicated): Date CC: Chavez Samuel MD DISCHARGE INSTRUCTION Observed: 10/13/2017 Status: F Source: [place] 6:41 PM [facility] RE[facility]IT[facility] Medical Records Department [address] [place] [address] Discharge Instruction 10/13/171839 MR#: [id number] Acct: [id number] Name: LANA SMYTH Rep #: [id number] : 1960 57 From: Heather Garcia MD [...] your Primary Care Provider. Call [facility] ([phone]) or report to the closest Emergency Room. Call 911 if necessary. 10/13/171840 <Electronically signed by Heather Garcia MD> Date Heather Garcia MD Cosigner Signature (If Indicated): Date CC: No Primary Care Physician; Chavez Samuel MD COMP METABOLIC PANEL Collected: 07/30/2017 Status: F Source: [place] 3:35 PM [facility] REPOSITORY TYPE CODE TESTS RESULT OUT OF REFERENCE UNITS RANGE LAB TP 6.3-8.0 g/dL Protein, Total 7.9 LAB ALB 3.9-4.9 g/dL Albumin 4.3 LAB CA 8.5-10.2 mg/dL Calcium, Total 9.4 LAB TBIL 0.2-1.3 mg/dL Bilirubin, Total 0.4 LAB ALKP 36-108 U/L Alkaline High Phosphatase 117 LAB AST 14-40 U/L AST High 101 LAB GLU 74-99 mg/dL Glucose 93 Result Comment: The [place] Diabetes Association (ADA) provides guidance for cutoff [...] Standards of Medical Care in Diabetes 2016, [place] Diabetes Association. Diabetes Care. 2016.39(Suppl 1). LAB [...] #### CMP, LIPB, CBCDIF, B12, SERFOL #### [facility] [address] [place], [place] [address] LIPID PANEL, BASIC Collected: 07/30/2017 Status: F Source: [place] 3:35 PM [facility] REPOSITORY TYPE CODE TESTS RESULT [...] Desk Reference: National Heart, Lung, and Blood [place]. National Institutes of Health. 2001: NIH Publication No. 01-3305. 2. An International Atherosclerosis Society position paper: global recommendations for the management of dyslipidemia: executive summary, Atherosclerosis. 2014: 232(2):410-413. Performed By: #### CMP, LIPB, CBCDIF, B12, SERFOL #### [facility] [employer] [address] [place], [place] [address] CBC AND DIFFERENTIAL Collected: 07/30/2017 Status: F Source: [place] 3:35 PM [facility] REPOSITORY TYPE CODE TESTS RESULT OUT [...] k/uL Abs Lymph 2.27 LAB AMONO % Dorado% 9.1 LAB AAMONO <0.87 k/uL Abs [place] 0.61 LAB AEOS % Eosin% 5.2 LAB AAEOS <0.46 k/uL Abs Eosin 0.35 LAB ABASO % Baso% 0.9 LAB AABASO <0.11 k/uL Abs Baso 0.06 LAB AUNRBC 0 /100 WBC NRBCs 0.0 LAB ABNRBC <0.01 k/uL Absolute nRBC <0.01 LAB DTYP DTYPE Auto Diff Performed By: #### CMP, LIPB, CBCDIF, B12, SERFOL #### [facility] [address] [place], [place] [address] VITAMIN B12 Collected: 07/30/2017 Status: F Source: [place] 3:35 PM [facility] REPOSITORY TYPE CODE TESTS RESULT OUT OF REFERENCE UNITS RANGE LAB B12 232-1245 pg/mL Vitamin B12 319 Performed By: #### CMP, LIPB, CBCDIF, B12, SERFOL #### [facility] [address] [place], [place] [address] FOLATE, SERUM Collected: 07/30/2017 Status: F Source: [place] 3:35 PM [facility] REPOSITORY TYPE CODE TESTS RESULT OUT OF REFERENCE UNITS RANGE LAB SERFOL >4.7 ng/mL Folate, 13.5 Serum Performed By: #### CMP, LIPB, CBCDIF, B12, SERFOL #### [facility] [address] [place], [place] [address] XR CHEST 2V FRONTAL/LAT Observed: 07/30/2017 Status: F Source: [place] 3:34 PM [facility] REPOSITORY * * *Final Report* * [...] are intact IMPRESSION: No acute cardiopulmonary process. Wind Project Manager: PSCB Transcribe Date/Time: Jul 30 2017 3:46P Dictated by : KRYSTAL MATOS MD This examination was interpreted and the report reviewed and electronically signed by: KRYSTAL MATOS MD on Jul 30 2017 3:47PM EST [id number] Observed: 07/30/2017 Status: COMPLETED Source: [place] 3:27 PM [facility] REPOSITORY HNO ID: [id number] Author: Yudtih Bashir (Rt) Aly Cannon Service: (none) Author Type: Correctional Cook Type: Progress Notes Filed: 07/30/2017 3:34 PM [...] PM PROGRESS Observed: 07/30/2017 Status: COMPLETED Source: [place] 3:05 PM [facility] REPOSITORY O ID: [id number] Author: Chavez Samuel Service: (none) Author Type: Physician Type: Progress Notes Filed: 07/30/2017 4:21 PM Note Text: This note was created using Easydiagn[employer]. Subjective Lana Smyth is a 57 year [...] - Heart Brother @ age 51 d/t [place] - Diabetes Brother - Lung Cancer [OTHER] [...] ivda Social History Narrative Moved here from [place] 2 years ago. Lives w/ . Drives. [...] SEVERITY SOURCE 06/08/2018 Drug No Known Unknown [facility] Allergy/416 Allergies/U09777 Hospital 886022(SNOM 0388(RXNORM) Repository ED CT) Drug NO KNOWN [facility] Class/43685 ALLERGIES [place] 1003(SNOMED Repository CT) ENCOUNTERS ENCOUNTERS ADMIT/DISCHARGE ACCOUNT ADMITTING ENCOUNTER LOCATION SOURCE NUMBER CLASS 06/18/2018 [id number] Ambulatory [facility] ing:PT Repository 06/09/2018 [id number] Ambulatory Building:[facility] [place] Practices Repository 06/09/2018 [id number] Ambulatory [facility] ing:MTRAD Repository 06/08/2018/06/09/20 [id number] Emergency [address] ing:ED Repository 06/07/2018/06/07/20 [id number] Emergency [address] ing:ED Repository 04/08/2018/04/08/20 [id number] Emergency [address] ing:ED Repository 10/13/2017/10/14/19 [id number] Emergency [address] Hospital ing:ED Repository 07/30/2017/07/30/19 [id number] Ambulatory [address] Repository 07/30/2017/07/30/19 [id number] Ambulatory [address] Repository 07/30/2017/07/30/19 [id number] Ambulatory [address] Repository 07/30/2017/07/31/19 [id number] Ambulatory [address] Repository PAYERS PAYERS ENCOUNTER GUARANTOR PAYER SUBSCRIBER SOURCE 06/18/2018 LANA Dominique Primary LANA Dominique [place] [id number] Insurance:MEDICARE BUNTINGDOB: Community FREEMAN PART A [facility] [id number] Number: Repository [address]Dju: [phone] [id number] [phone] () Date:1997-11-21 06/18/2018 Secondary NOT GIVENUNK [place] Insurance:SELF PAY [facility] Number: Effective Repository Date:2018-06-09 06/09/2018 Lana Dominique Primary Lana Dominique OHIP Practices BuntingDOB: Insurance:MedicarePol BuntingDOB: Repository E icy Number: [id number] [address] AEffective E [facility], Date:[id number], [place] [address]Qqz: Name:[facility] [place] [address]Uhu: [id number], [place] () [address]JJ: [phone] () [phone] 06/09/2018 LANA Dominique Primary LANA [place] [id number] Insurance:MEDICARE BUNTINGDOB: Community FREEMAN PART A [facility] [id number], [place] Number: Repository [id number]: [phone] [id number] [phone] () Date:2018-06-09 06/09/2018 Secondary NOT GIVENUNK [place] Insurance:SELF PAY [facility] Number: Effective Repository Date:2018-06-09 06/08/2018 LANA Dominique Primary LANA Dominique [place] [id number] E Insurance:MEDICARE BUNTINGDOB: Community FREEMAN PART A [facility] [id number], [place] Number: Repository [address]Edp: [phone] [id number] [phone] () Date:2018-06-08 06/08/2018 Secondary NOT GIVENUNK [place] Insurance:SELF PAY [facility] Number: Effective Repository Date:2018-06-08 06/07/2018 LANA Dominique Primary LANA [place] [id number] Insurance:MEDICARE BUNTINGDOB: Community FREEMAN PART A [facility] [id number], [place] Number: Repository [address]Ngk: 304 [id number] [phone] () Date:2018-06-07 06/07/2018 Secondary NOT GIVENUNK [place] Insurance:SELF PAY [facility] [place] [facility]: Effective Repository Date:2018-06-07 04/08/2018 LANA Dominique Primary LANA [place] [id number] E Insurance:MEDICARE BUNTINGDOB: Community FREEMAN PART A [facility] [id number], [place] Number: Repository [address]Hba: 304 [id number] [phone] () Date:2018-04-08 04/08/2018 Secondary NOT GIVENUNK [place] Insurance:SELF PAY [facility] Number: Effective Repository Date:2018-04-08 10/13/2017 LANA Primary LANA [place] [id number] E Insurance:MEDICARE BUNTINGDOB: Community FREEMAN PART A [facility] [id number], [place] Number: Repository [id number]: 304 [id number] [phone] () Date:2017-10-13 10/13/2017 Secondary NOT GIVENUNK [place] Insurance:SELF PAY [facility] Number: Effective Repository Date:2017-10-13
== END ==
PROVIDERS: Family Provider Internal Medicine; PCP Internal Medicine; Referring Provider Internal Medicine; Visit Provider Internal Medicine
DX: M54.5 Low back pain (principal)
CPT/HCPCS: 72110

== ENCOUNTER 2018-07-18 12:08 | Emergency (ER) | payer MEDICARE, SELFPAY ==
[2018-07-18 12:09] VITALS: BP 131/66; PULSE 104; RESP 16; TEMP 36.9; O2SAT 97; BMI 23.6
[2018-07-18] MEDS: Orphenadrine 60 MG/2 ML Ampul IM (12:24)
[2018-07-18] MEDS: Triamcinolone Acetonide 40 MG/ML Vial IM (12:24)
[2018-07-18] MEDS: Ketorolac 60 MG/2 ML Vial IM (12:24)
--- NOTE | 2018-07-18 12:33 | ED.VISSUMM ---
- ER Visit Summary Date of Service: 07/18/18 Chief Complaint: Back pain History of Present Illness: The patient is a 58 M who presents with back pain. He said this for 3 days. He has chronic pain in his lower back. He takes [place] for this. He denies any specific injury or reason why his back pain is increasing. He denies fevers. Pain is worse with movement. Better with sitting. He states sometimes he comes and gets Toradol, Norflex and Kenalog and he feels better Physical Examination: Vitals are reviewed. Heart is regular rate and rhythm. Lungs are clear bilaterally. Abdomen soft and nontender. Back is nontender. Extremities reveal no edema. Neurologic exam is normal. Test Results: None performed Emergency Department Course and Treatment: Patient will be treated with Norflex, Toradol and Kenalog. He will contact his PCP for further medications. Treatment Plan: [] Disposition: Discharge Impression: Acute exacerbation of chronic low back pain This note was generated with [employer] dictation software. It may contain incorrect words, spelling, and punctuation that were not noted in review of the chart prior to signing ED Disposition - Plan for ED Patient: Chief Complaint: Back Referrals: Angie Medina DO [Primary Care Provider] -
--- NOTE | 2018-07-18 12:34 | ED.DEP ---
ED Disposition - Plan for ED Patient: Disposition: Home or Assisted Living Chief Complaint: Back Instructions: ED Neck Back Pain General Referrals: Angie Medina DO [Primary Care Provider] -
[2018-07-18 12:58] VITALS: BP 111/67; PULSE 98; RESP 18; O2SAT 93
--- NOTE | 2018-07-18 12:59 | ED.RN ---
pt made aware unable to drive with im norflex given
== END 2018-07-18 12:59 | disposition home or self-care (01) ==
PROVIDERS: Emergency Provider Emergency Medicine; Family Provider Internal Medicine; PCP Internal Medicine
DX: G89.29 Other chronic pain (principal); M54.5 Low back pain; Z72.0 Tobacco use
CPT/HCPCS: 96372; 99282

== ENCOUNTER 2018-08-19 09:30 | Outpatient (RCR) | payer MEDICARE, SELFPAY ==
--- NOTE | 2018-07-27 07:44 | HP.PTEVAL_ITS ---
Patient's Visit Information LANA SMYTH is a 58 year old M referred to Physical Therapy by Angie Medina DO with a diagnosis of LBP with radiculopathy. Date of Evaluation: 07/27/18 Physical Therapist: Ruiz Cohen, DPT, OCS, CSCS - Visit Plan Frequency: 2-3x /Week Duration: 4-6 Weeks Plan: 2-3x/week for 3-6 weeks for: 1. L/S ext exercises and mobs. 2. quad, ITB and HS rollout and stretches and teach for HEP. 3. DLS and teach for HEP. 4. TENS iwth MH as needed. - Subjective Findings: LBP. Had PT in [place] and it got worse. Saw chiropractor and he couldn't help either. Therapy was 20 years ago as was chiropractic. Had MRI 20 years ago and showed messed up low back and got nerve root blocks. Been in pain on and off for 20 years insidiously. Goes to the hospital every 6 months when he can't walk. ER doctor recommended Dr. Medina who sent for more therapy. It can flare up with bending, hard work and sometimes just walking. Shots at hospital really help and had them last week. Doctor also gave meds and is now getting over this flare. Had 3-5/10 over weekend, has to be careful when not in pain which happened rarely over the weekend. Sleep is not good as he has other problems but back keeps him up when it acts up. Happened last week. Sometimes gets pain down left leg and had it last week in [place]. 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 Back keeps him from working. Spends day watching grandsons, works. He stays busy around the house. Standing to wash dishes hurts. Is better when he moves around a little bit. No regular back exercises. Does basic ADLs allright, just a little slow. - Pain LBP Pain Intensity (Out of 10): 3 Pain Intensity Range: 3, 5 - Objective Walks slow and stiff but I. Trasnfers I but slow. L/S AROM ext max limited and SB mod limited and all hurt central LB, flexion is min limited. HS and quads and ITB max tight. reflexes 2/3 patella and achilles. Sensation LE WNl to gross light touch. UE AROM limited shoulder flexion to 140. Strength LE 4/5 without myotomal abnormalities but pain in LB with hip flexion seated. repeated extension increases ROM. - Goals Goal 1:: past L/S ext neutral to only min deficits without pain Goal Time Frame: 4-6 Weeks Goal 2:: LBP 0-2/10 at all times and 50% better overall. Goal Time Frame: 4-6 Weeks Goal 3:: I management of condtion with LB ROM and upper leg stretches and core strength. Goal Time Frame: 4-6 Weeks Goal 4:: Sleep without waking at night due to pain. Goal Time Frame: 4-6 Weeks - Rehabilitation Potential Physical Therapy Diagnosis: LBP with radiculopathy, likely discal. Rehabilitation Potential: Questionable - Anticipated Interventions Patient/Client Instruction: Educate patient on: Condition For the Purpose of:: To decrease pain, To increase ROM, To increase tolerance to activity/condition/position Therapeutic Exercise to Include: Strength training, Flexibilty training, Passive ROM, Active ROM, Dynamic Lumbar Stabilization For the Purpose of:: To decrease pain, To increase ROM, To improve muscle performance and motor function, To increase tolerance to activity/condition/position Manual Therapy Techniques to Include: Mobilization For the Purpose of:: To increase ROM TENS: Yes Thermo therapy (hot pack): Yes For the Purpose of:: To decrease pain Thank you for the opportunity to evaluate your patient. For Medicare and Medicare HMO plans, please review the plan of care and approve it. It will need to be FAXED BACK to us at [phone] for Medicare purposes. For Medicare only, by signing this I certify the plan of care. Please let me know if there are questions or concerns regarding this plan of care. Physician Signature: Date:
--- NOTE | 2018-08-19 09:56 | HP.PTREVAL_ITS ---
Angie Medina, DO, It has been my pleasure to treat LANA SMYTH over the last 5 visits for LBP with radiculopathy. Please see the progress note below for an update on the physical therapy plan of care! Subjective: I am up straighter. Exercises hurt but does them carefully. This week pain is 3/10 in middle of LB. No leg symptoms lately. Feels like he needs an MRI. the exercises help. Objective/Function: Patient is transferring much easier adn standing up tall walking in today. Reflexes 1/3 patella adn achilles, Sensationn WNL in LE adn strength LE 4+/5 without myotomal problems. AROM L/S min deficits in ext adn SB and forward flexion is OK, ext causes some mild pain increase in central LB. OV ERALL DOING SIGNIFCATLY BETTER BUT STILL FRUSTRATED WITH 3-4/10 CONSTANT PAIN WHCIH IS ABOVE HIS 20 YEAR BASELINE OF 1-2/10. HE WANTS TO TAKE THE NEXT STEP ADN WILL SCHEDULE WITH DOCTOR FOR MRI OR WHATEVER THE NEXT STEP MAY BE. I EDUCATED HIM THAT HE IS STILL APPROP FOR PT AND WE COULD PUT HIM IN THE POOL OR PROGRESS TO CORE STRENGTH WHCIH HAS BEEN MINMAL DUE TO MISSED VISITS AND PAIN IN PREVIOUS SESSIONS. Plan Plan: Pt to f/u with doctor due to continue pain. Further therapy appropriate to progress to core strength or pool if pain returns. Goals Goal 1:: past L/S ext neutral to only min deficits without pain Goal Time Frame: 4-6 Weeks Goal Progress: Goal Met Goal 2:: LBP 0-2/10 at all times and 50% better overall. Goal Time Frame: 4-6 Weeks Goal Progress: Progressing Goal 3:: I management of condtion with LB ROM and upper leg stretches and core strength. Goal Time Frame: 4-6 Weeks Goal Progress: Progressing Goal 4:: Sleep without waking at night due to pain. Goal Time Frame: 4-6 Weeks Goal Progress: Not Progressing Anticipated Interventions Patient/Client Instruction: Educate patient on: Condition For the Purpose of:: To decrease pain, To increase ROM, To increase tolerance to activity/condition/position Therapeutic Exercise to Include: Strength training, Flexibilty training, Passive ROM, Active ROM, Dynamic Lumbar Stabilization For the Purpose of:: To decrease pain, To increase ROM, To improve muscle performance and motor function, To increase tolerance to activity/condition/position Manual Therapy Techniques to Include: Mobilization For the Purpose of:: To increase ROM TENS: Yes Thermo therapy (hot pack): Yes For the Purpose of:: To decrease pain Please do not hesitate to contact me at [phone] by phone or if you have questions or concerns regarding this new plan of care! Sincerely, Ruiz Cohen, DPT, OCS, CSCS
--- NOTE | 2018-09-22 16:17 | HP.PT.NRP ---
HP - Discharge Summary (1) - Patient Information LANA SMYTH was seen in my office for initial evaluation on 07/27/18. The following Plan of Care was established for this patient: Initial Frequency: 2-3x /Week Initial Duration: 4-6 Weeks - Anticipated Interventions Patient/Client Instruction: Educate patient on: Condition For the Purpose of:: To decrease pain, To increase ROM, To increase tolerance to activity/condition/position Therapeutic Exercise to Include: Strength training, Flexibilty training, Passive ROM, Active ROM, Dynamic Lumbar Stabilization For the Purpose of:: To decrease pain, To increase ROM, To improve muscle performance and motor function, To increase tolerance to activity/condition/position Manual Therapy Techniques to Include: Mobilization For the Purpose of:: To increase ROM TENS: Yes Thermo therapy (hot pack): Yes For the Purpose of:: To decrease pain This patient was last seen in our office 08/19/18. Pertinent comments regarding their Physical therapy will appear below: Pt seen 5 visits of POC and was progressing but still painful. He wanted to f/u with doctor vs continued PT. That has been over a month ago and I will disocntinue due to nonattendance. At this point I will be discontinuing this patient from physical therapy. I would be happy to see this patient again in the future if found appropriate by the physician. Thank you! Ruiz Cohen, DPT, OCS, CSCS
== END 2018-08-19 19:00 | disposition home or self-care (01) ==
LOC: PT 09:30
PROVIDERS: Family Provider Internal Medicine; PCP Internal Medicine; Visit Provider Internal Medicine
DX: M54.16 Radiculopathy, lumbar region (principal)
CPT/HCPCS: 97014; 97110; 97140; 97162; 97530; G0283

== ENCOUNTER 2019-03-06 23:36 | Emergency (ER) | payer MEDICARE, SELFPAY ==
[2019-03-06 23:38] VITALS: BP 163/99; PULSE 88; RESP 18; TEMP 36.8; O2SAT 100; BMI 21.9
--- NOTE | 2019-03-06 23:51 | ED.VIS.GEN ---
History of Present Illness Chief Complaint: Lower Extremity Injury Narrative: Patient is a 59-year-old male who presents with left knee pain. He states he bumped it about 3 weeks ago and has been having some pain since that time. However today he developed swelling and increased pain. He is on his knees a lot for work. He denies medical history. Past Medical History - Allergies and Home Meds Allergies/Adverse Reactions: Allergies No Known Allergies Allergy (Verified 03/06/19 23:39) Primary Care Physician: Angie Medina DO [Primary Care Provider] - Past Medical History: None Smoking Status: Current every day smoker Review of Systems All systems negative except as indicated General: Denies: Fever Cardiovascular: Denies: Chest pain Respiratory: Denies: Dyspnea Gastrointestinal: Denies: Vomiting, Diarrhea Musculoskeletal: Reports: - - Left knee pain Physical Exam Vital Signs/Narrative: Vital Signs Temp Pulse Resp BP Pulse Ox 03/06/19 23:38 98.3 F 88 18 163/99 H 100 Inital Vital Signs reviewed: Yes General: Well nourished, Well developed Head: Normocephalic Eyes: EOMI ENT: Moist mucous membranes Cardiovascular: Regular rate Respiratory: No distress Extremities: - - Patient has soft tissue swelling and fluctuance over the anterior left knee suggestive of prepatellar bursitis he has a small joint effusion the bursa is not hot to the touch or erythematous no deformity active full range of motion able to ambulate Skin: Normal color Neurological: Alert Psychological: Normal affect Diagnostic/Tx/Re-eval Impressions Knee X-Ray 03/07/19 00:00 IMPRESSION: There is marked soft tissue swelling anterior to the patellar tendon may represent hematoma or bursitis.. Electronically Signed: Raúl Song, at 1:11 EDT Tel , Service support , 03/07/19 00:00 Knee 4 or More Views [RAD] Stat - Medical Decision Making Patient was given naproxen. X-ray as above. This likely represents hematoma or bursitis. I do not believe this is septic. It is not hot to the touch or erythematous. Robinson wrap was applied. Patient advised on supportive care. He was given a prescription for anti-inflammatories. He understands to return for new or worsening symptoms and was discharged home. ED Disposition - Plan for ED Patient: Disposition: Home or Assisted Living Diagnosis: Prepatellar bursitis Prescriptions: Naproxen [Naprosyn] 500 mg PO BID #20 tab Prescription Printed Referrals: Angie Medina DO [Primary Care Provider] -
[2019-03-06] MEDS: Naproxen 500 MG Tablet PO (23:57)
--- NOTE | 2019-03-07 | RAD_ITS ---
STUDY: X-RAY - LEFT KNEE REASON FOR EXAM: Male, 59 years old. Knee pain TECHNIQUE: 4 view(s) of the knee. COMPARISON: None. FINDINGS: Normal visualized distal femur. Normal visualized proximal tibia and fibula. Normal proximal tibiofibular articulation. Normal medial femorotibial compartment. Normal lateral femorotibial compartment. Normal patellofemoral articulation. There is marked soft tissue swelling anterior to the patellar tendon may represent hematoma or bursitis.. RAD/Knee 4 or More Views IMPRESSION: There is marked soft tissue swelling anterior to the patellar tendon may represent hematoma or bursitis.. Electronically Signed: Raúl Song, at 1:11 EDT Tel , Service support ,
[2019-03-07 01:42] VITALS: BP 154/72; PULSE 87; RESP 16; O2SAT 97
== END 2019-03-07 01:44 | disposition home or self-care (01) ==
PROVIDERS: Emergency Provider Emergency Medicine; Family Provider Internal Medicine; PCP Internal Medicine
DX: M70.42 Prepatellar bursitis, left knee (principal); F17.200 Nicotine dependence, unspecified, uncomplicated
CPT/HCPCS: 73564; 99284

== ENCOUNTER 2019-05-07 07:30 | Outpatient (RCR) | payer MEDICARE, SELFPAY ==
--- NOTE | 2019-04-15 10:23 | HP.PTEVAL ---
Patient's Visit Information LANA SMYTH is a 59 year old M referred to Physical Therapy by SARAH SHI with a diagnosis of TEAR OF MEDIAL MENISCUS OF LEFT KNEE. Date of Evaluation: 04/15/19 Physical Therapist: Jeremiah Coles, PT, Cert MDT, OCS - Visit Plan Frequency: 2x /Week Duration: 4 Weeks Plan: PT INTERVENTIONS ROM,STRENGTHNEING QUAD/HAMS/HIP LEFT KNEE,GAIT /BALANCE ,MODALITIES - Subjective Findings: This 59 y/o female presents to pjysical therapy with left knee pain. Patient pain progressively worse thus had MRI showed meniscus tear. Patient thus underwent s/p partial medial knee meniscectomy and chrondroplasty on 04/06/[address] Shi at [facility] d/c same day with crutches wirh WBAT.Seen Friday recommended PT. Patient conts to have pain. Patient has difficulty with walking ,extended distance,stairs ,unable to squat ,kneel.Patient denies parathesia/tingling. Patient has difficulty with sleeping. Patient pain affects ability with ADLS',housework tasks and function.Patient k ee surgery affects QOL and wallking. SOCAIL: . VOCATION: self employeed - Pain Left Knee Pain Intensity (Out of 10): 8 Pain Intensity Range: 10 - Objective POSTURE: mild foward posture. GAIT: ambulates with antalgic gait with crutches with decrease stance time swing phase during gait cycle. BALANCE: good- with crutches. STAIRS: one step at a time with crutches. AROM: 20-110 supine degrees flexion. EDEMA: absent. MMT: quads/hams 4-/5,hip flexion 4-/5,hip abd 3+/5. PALPATION: mild tender. FLEXABLITY: hams min/mod tight. PATELLA MOBILITY: MOD tight - Goals Goal 1:: Independant with HEP. Goal Time Frame: 4-6 Weeks Goal 2:: Patient to increase AROM knee 5-120 degrees of knee flexion. Goal Time Frame: 4-6 Weeks Goal 3:: Patient to ambulate with improve quality of gait community distances no device. Goal Time Frame: 4-6 Weeks Goal 4:: Patient to increase quads/hams /hip 4/5 to improve gait and function. Goal Time Frame: 8-12 Weeks Goal 5:: Patient to ascend/descend stairs aternating with rail. Goal Time Frame: 4-6 Weeks Goal 6:: Patient to improve LFES score by 10 points or > to improve QOL. Goal Time Frame: 4-6 Weeks - Rehabilitation Potential Physical Therapy Diagnosis: This patient underwent s/p left knee scopic partial medial menisectomy and chrndroplasty. with pain ,decrease ,ROM,strength ,stairs and impaired gait and function thus benifit from skilled PT Rehabilitation Potential: Good - Anticipated Interventions Patient/Client Instruction: Educate patient on: Condition, Plan of Care For the Purpose of:: To decrease pain, To increase ROM, To improve muscle performance and motor function, To increase tolerance to activity/condition/position, To improve performance and independence with ADL's, To decrease level of supervision to perform tasks, To improve gait and locomotor functions, To increase flexibility/ROM, To improve endurance, To improve balance, To improve ability to perform tasks related to life management Therapeutic Exercise to Include: Strength training, Balance training, Postural training, Flexibilty training, Gait and locomotor training Comment: KNEE /HIP For the Purpose of:: To decrease pain, To increase ROM, To improve muscle performance and motor function, To improve ability to perform ADL's, To increase tolerance to activity/condition/position, To improve ability of physical actions for home/community/work/leisure, To improve health of tissue, To decrease soft tissue restriction, To increase flexibility/ROM, To improve health and function, To improve ability to perform tasks related to life management TENS: Yes IF ES: Yes Cryotherapy (ice pack, ice massage): Yes Thermo therapy (hot pack): Yes Ultrasound (thermal/non thermal): Yes For the Purpose of:: To decrease pain, To decrease swelling/inflammation, To improve nutrient delivery to tissue, To increase oxygenation perfusion, To improve health of tissue, To decrease soft tissue restriction Thank you for the opportunity to evaluate your patient. For Medicare and Medicare HMO plans, please review the plan of care and approve it. It will need to be FAXED BACK to us at [phone] for Medicare purposes. For Medicare only, by signing this I certify the plan of care. Please let me know if there are questions or concerns regarding this plan of care. Physician Signature: Date:
--- NOTE | 2019-08-13 13:22 | HP.PT.NRP ---
HP - Discharge Summary (1) - Patient Information LANA SMYTH was seen in my office for initial evaluation on 04/15/19. The following Plan of Care was established for this patient: Initial Frequency: 2x /Week Initial Duration: 4 Weeks - Anticipated Interventions Patient/Client Instruction: Educate patient on: Condition, Plan of Care For the Purpose of:: To decrease pain, To increase ROM, To improve muscle performance and motor function, To increase tolerance to activity/condition/position, To improve performance and independence with ADL's, To decrease level of supervision to perform tasks, To improve gait and locomotor functions, To increase flexibility/ROM, To improve endurance, To improve balance, To improve ability to perform tasks related to life management Therapeutic Exercise to Include: Strength training, Balance training, Postural training, Flexibilty training, Gait and locomotor training For the Purpose of:: To decrease pain, To increase ROM, To improve muscle performance and motor function, To improve ability to perform ADL's, To increase tolerance to activity/condition/position, To improve ability of physical actions for home/community/work/leisure, To improve health of tissue, To decrease soft tissue restriction, To increase flexibility/ROM, To improve health and function, To improve ability to perform tasks related to life management TENS: Yes IF ES: Yes Cryotherapy (ice pack, ice massage): Yes Thermo therapy (hot pack): Yes Ultrasound (thermal/non thermal): Yes For the Purpose of:: To decrease pain, To decrease swelling/inflammation, To improve nutrient delivery to tissue, To increase oxygenation perfusion, To improve health of tissue, To decrease soft tissue restriction This patient was last seen in our office 05/07/19. Pertinent comments regarding their Physical therapy will appear below: Patient was seen for PT for left knee medical meniscus tear focusing on ROM ,strength ,gait trianing thus is d/c . At this point I will be discontinuing this patient from physical therapy. I would be happy to see this patient again in the future if found appropriate by the physician. Thank you! Jeremiah Coles, PT, Cert MDT, OCS
== END 2019-05-07 19:00 | disposition home or self-care (01) ==
LOC: PT 07:30
PROVIDERS: Family Provider Internal Medicine; PCP Internal Medicine
DX: S83.242D Other tear of medial meniscus, current injury, left knee, subsequent encounter (principal)
CPT/HCPCS: 97110; 97162